=== PATIENT | female | born 1985 | race Caucasian/White ===

== ENCOUNTER 2016-10-30 16:51 | Emergency (ER) | payer OTHER ==
[2016-10-30 16:59] VITALS: BP 120/69; PULSE 102; TEMP 97.4; BMI 40.5
--- NOTE | 2016-10-30 18:40 | PDOC ---
History of Present Illness - General Chief Complaint: Cold Symptoms Stated Complaint: 24 wks preg HEADACHE,DIFF BREATHING Time Seen by Provider: 10/30/16 17:16 History Source: Patient Exam Limitations: No Limitations - History of Present Illness Initial Comments: 10/30/16 18:37 3 days of cough with fever; feeling lousy; 24 weeks Timing/Duration: reports: week Severity: reports: mild Possible Cause: No: illness exposure Associated Symptoms: reports: cough, fever/chills, nasal congestion, nasal drainage, sore throat Past History - Past Medical History Allergies/Adverse Reactions: Allergies Allergy/AdvReac Type Severity Reaction Status Date / Time sea food Allergy Uncoded 10/30/16 16:55 Home Medications: Ambulatory Orders Albuterol Sulfate Inhaler - [Ventolin HFA Inhaler -] 2 inh IH Q4H #0 inh Loratadine [Claritin] 10 mg PO DAILY #14 tab.rapdis 12/22/11 Docusate Sodium [Colace] 100 mg PO TID #90 capsule 04/19/14 Magnesium Citrate [Citrate of Magnesia] 300 ml PO ONCE #1 bottle 04/19/14 Polyethylene Glycol 3350 [Miralax 255 gm Btl] 17 gm PO DAILY PRN #1 bottle 04/19 Other medical history: none - Psycho/Social/Smoking Cessation Hx Anxiety: No Suicidal Ideation: No Smoking Status: No Smoking History: Never smoked Have you smoked in the past 12 months: No Number of Cigarettes Smoked Daily: 0 Cigars Per Day: 0 Information on smoking cessation initiated: No Hx Alcohol Use: No Drug/Substance Use Hx: No Substance Use Type: None Review of Systems - Review of Systems Constitutional: Yes: Fever, Malaise HEENTM: Yes: Nose Pain, Nose Congestion, Throat Pain Respiratory: Yes: Cough. No: Symptoms reported, Shortness of Breath, SOB with Exertion, Wheezing Cardiac (ROS): No: Symptoms Reported, Chest Pain ABD/GI: No: Symptoms Reported, Diarrhea, Nausea, Vomiting : No: Burning, Dysuria, Frequency, Hematuria, Urgency *Physical Exam - Vital Signs Last Vital Signs Temp Pulse Resp BP Pulse Ox 97.4 F L 102 H 18 120/69 100 10/30/16 16:56 10/30/16 16:56 10/30/16 16:56 10/30/16 16:56 10/30/16 16:56 - Physical Exam General Appearance: Yes: Appropriately Dressed HEENT: positive: TMs Normal, Pharyngeal Erythema, Tonsillar Exudate, Tonsillar Erythema, Nasal Congestion, Rhinorrhea. negative: Pharynx Normal, TM Bulging, TM Dull, TM Erythema Neck: positive: Supple, Lymphadenopathy (R), Lymphadenopathy (L). negative: Tender, Rigid Respiratory/Chest: positive: Lungs Clear Cardiovascular: positive: Regular Rhythm, Regular Rate. negative: Murmur Integumentary: negative: Erythema, Petechiae, Other Neurologic: positive: lining vamper II-XII NML intact, Fully Oriented, Alert Medical Decision Making - Medical Decision Making 10/30/16 19:08 negative flu and rapid strep today; feeling better post tylenol for headache *DC/Admit/Observation/Transfer Diagnosis at time of Disposition: Viral upper respiratory tract infection - Discharge Dispostion Disposition: HOME Condition at time of disposition: Stable Admit: No - Patient Instructions Additional Instructions: lots of fluids; rest; return for increased symptoms - Post Discharge Activity Work/School Note: Back to Work
[2016-10-30] MEDS ORDERED: ACETAMINOPHEN 325 MG TABLET (FP) PO ONE (18:46)
[2016-10-30] MEDS ORDERED: ACETAMINOPHEN 325 MG TABLET (FP) ONE (18:49)
== END 2016-10-30 19:16 | disposition home or self-care (01) ==
LOC: JERFT 16:51
DX: J06.9 Acute upper respiratory infection, unspecified (principal); B97.89 Other viral agents as the cause of diseases classified elsewhere
CPT/HCPCS: 87070; 87077; 87430; 87804; 99281-25

== ENCOUNTER 2017-01-28 09:16 | Emergency (ER) | payer OTHER ==
[2017-01-28 09:31] VITALS: TEMP 97.9; BMI 44.9
--- NOTE | 2017-01-28 09:42 | PDOC ---
History of Present Illness - General History Source: Patient, Parent(s) (Mother ), Old Records Exam Limitations: No Limitations - History of Present Illness Initial Comments: 01/28/17 10:08 The patient is a 32 year old female (; currently approximately 37 weeks ), with a significant past medical history of asthma (as a child) and acid reflux, who presents to the emergency department with shortness of breath on exertion since earlier this morning. The patient reports that she was walking up the stairs earlier this morning and felt winded so she decided to visit the ED for evaluation. The patient additionally reports that certain foods trigger her acid reflux. The patient reports that she ate ketchup yesterday and shortly after, she began experiencing a mild productive cough, which she reports always occurs after she consumes foods which trigger her acid reflux. The patient reports that she took Mylanta last night, with minimal relief. The patient presents to the ED today primarily to ensure that her baby is okay given her shortness of breath earlier this morning. Currently in the ED , the patient denies any symptoms. The patient denies any abdominal cramping or vaginal bleeding. The patients mother is at the bedside. The patients primary language is Tunisian. Allergies: Shellfish derived. Past Surgical History: None reported. Social History: Non smoker. Denies alcohol or drug use. AIRPORT CONTROL OPERATOR: ROMINA Rubi <Emily Mark - Last Filed: 01/28/17 10:14> <Jaki Gee - Last Filed: 01/29/17 10:43> - General Chief Complaint: Shortness of Breath Stated Complaint: CHEST PAIN, 37 WKS Time Seen by Provider: 01/28/17 09:39 Past History <Emily Mark - Last Filed: 01/28/17 10:14> - Past Medical History Other medical history: DENIES. - Psycho/Social/Smoking Cessation Hx Anxiety: No Suicidal Ideation: No Smoking Status: No Smoking History: Never smoked Have you smoked in the past 12 months: No Number of Cigarettes Smoked Daily: 0 Cigars Per Day: 0 Hx Alcohol Use: No Drug/Substance Use Hx: No Substance Use Type: None <Jaki Gee - Last Filed: 01/29/17 10:43> - Past Medical History Allergies/Adverse Reactions: Allergies Allergy/AdvReac Type Severity Reaction Status Date / Time shellfish derived Allergy Verified 01/28/17 10:12 sea food Allergy Uncoded 01/28/17 10:11 Home Medications: Ambulatory Orders Magnesium Citrate [Citrate of Magnesia] 300 ml PO ONCE #1 bottle 04/19/14 Vits #93/Iron Fum/FA [ Formula Tablet] 1 each PO DAILY Review of Systems - Review of Systems Able to Perform ROS?: Yes Comments:: 01/28/17 10:05 GENERAL/CONSTITUTIONAL: No fever or chills. No weakness. HEAD, EYES, EARS, NOSE AND THROAT: No change in vision. No ear pain or discharge. No sore throat. CARDIOVASCULAR: +Dyspnea on exertion. No chest pain. RESPIRATORY: +Cough. No wheezing or hemoptysis. GASTROINTESTINAL: No nausea, vomiting, diarrhea or constipation. GENITOURINARY: No dysuria, frequency, or change in urination. MUSCULOSKELETAL: No joint or muscle swelling or pain. No neck or back pain. SKIN: No rash. NEUROLOGIC: No headache, vertigo, loss of consciousness, or change in strength/ sensation. ENDOCRINE: No increased thirst. No abnormal weight change. HEMATOLOGIC/LYMPHATIC: No anemia, easy bleeding, or history of blood clots. ALLERGIC/IMMUNOLOGIC: No hives or skin allergy. <Emily Mark - Last Filed: 01/28/17 10:14> *Physical Exam - Vital Signs Last Vital Signs Temp Pulse Resp BP Pulse Ox 97.9 F 92 H 19 133/79 99 01/28/17 09:26 01/28/17 09:26 01/28/17 09:26 01/28/17 09:26 01/28/17 09:26 - Physical Exam Comments: 01/28/17 10:02 GENERAL: Awake, alert, and fully oriented, in no acute distress. HEAD: No signs of trauma. EYES: PERRLA, EOMI, sclera anicteric, conjunctiva clear. ENT: Auricles normal inspection, hearing grossly normal, nares patent, oropharynx clear without exudates. Moist mucosa. NECK: Normal ROM, supple, no lymphadenopathy, JVD, or masses. LUNGS: Breath sounds equal, clear to auscultation bilaterally. No wheezes, and no crackles. HEART: Regular rate and rhythm, normal S1 and S2, no murmurs, rubs or gallops. ABDOMEN: Gravid uterus. Soft, nontender, normoactive bowel sounds. No guarding, no rebound. No masses. EXTREMITIES: Normal range of motion, no edema. No clubbing or cyanosis. No cords , erythema, or tenderness. NEUROLOGICAL: Cranial nerves II through XII intact. Normal speech, normal gait. SKIN: Warm, dry, normal turgor, no rashes or lesions noted. <Emily Mark - Last Filed: 01/28/17 10:14> - Vital Signs Last Vital Signs Temp Pulse Resp BP Pulse Ox 97.9 F 92 H 19 133/79 99 01/28/17 09:26 01/28/17 09:26 01/28/17 09:26 01/28/17 09:26 01/28/17 09:26 <Jaki Gee - Last Filed: 01/29/17 10:43> Medical Decision Making - Medical Decision Making No signs of PE, and clinical presentation makes it unlikely- more like discomforts of late combined with reflux and dietary choices. She is asymptomatic in ED. Will give H2 vidya and send to L&D for assessment. <Jaki Gee - Last Filed: 01/29/17 10:43> *DC/Admit/Observation/Transfer - Attestations Scribe Attestion: 01/28/17 09:44 Documentation prepared by Emily Mark, acting as medical transport specialist for Jaki Gee MD. <Emily Mark - Last Filed: 01/28/17 10:14> - Discharge Dispostion Admit: No <Jaki Gee - Last Filed: 01/29/17 10:43> Diagnosis at time of Disposition: Shortness of breath Acid reflux Qualifiers: Esophagitis presence: esophagitis presence not specified Qualified Code(s): K21.9 - Gastro-esophageal reflux disease without esophagitis - Discharge Dispostion Disposition: HOME Condition at time of disposition: Stable - Referrals Referrals: [facility] ([facility]) [Outside] Maile De Dios [Primary Care Provider] - - Patient Instructions Printed Discharge Instructions: DI for -- Discomforts and Remedies
[2017-01-28] MEDS ORDERED: RANITIDINE HCL 150 MG TABLET (FP) PO ONE (09:56)
--- NOTE | 2017-01-28 10:13 | EKG ---
Test Reason : Blood Pressure : / mmHG Vent. Rate : 096 BPM Atrial Rate : 096 BPM P-R Int : 120 ms QRS Dur : 084 ms QT Int : 332 ms P-R-T Axes : 051 009 028 degrees QTc Int : 419 ms NORMAL SINUS RHYTHM WITH SINUS ARRHYTHMIA MODERATE VOLTAGE CRITERIA FOR LVH, MAY BE NORMAL VARIANT BORDERLINE ECG NO PREVIOUS ECGS AVAILABLE Confirmed by GARRETT MARSHALL MD ([id number]) on 01/28/2017 10:12:44 AM Referred By: Confirmed By:GARRETT MARSAHLL MD
[2017-01-28 11:11] VITALS: BP 131/64; PULSE 88
== END 2017-01-28 11:15 | disposition home or self-care (01) ==
LOC: JER 09:16
DX: O26.893 Other specified pregnancy related conditions, third trimester (principal); R06.02 Shortness of breath; K21.9 Gastro-esophageal reflux disease without esophagitis; Z3A.37 37 weeks gestation of pregnancy
CPT/HCPCS: 93005; 93010; 99282-25

== ENCOUNTER 2017-02-06 21:40 | Inpatient (IN) | payer OTHER ==
[2017-02-06] MEDS: DEXTROSE 5%-LACTATED RINGERS 1,000 ML IV SCH (22:20)
[2017-02-06] MEDS ORDERED: BUTORPHANOL TARTRATE 1 MG/ML VIAL IVPB ONE (22:29)
[2017-02-06] MEDS ORDERED: PROMETHAZINE HCL 25 MG/1 ML VIAL IVPUSH ONE (22:29)
[2017-02-06] MEDS ORDERED: DINOPROSTONE 10 MG VAGINAL SUPPOSITORY VG ONE (22:29)
--- NOTE | 2017-02-06 22:29 | HP ---
Admitting History and Physical - Admission Chief Complaint: srom History of Present Illness: 32 y/o at 39 weeks comes with SROM this evening. gbs neg, hiv neg, rubella immune History Source: Patient - Past Medical History STYLE ADVISOR: No: Alzheimer's, CVA, Dementia, Migraine, Multiple Sclerosis, Peripheral Neuropathy, Parkinson's, Seizure, Syncope, TIA, Vertigo, Other Cardiovascular: No: AFIB, Aneurysm, Aortic Insufficiency, Aortic Stenosis, CAD, CHF, Deep Vein Thrombosis, HTN, Hyperlipdemia, FL, Mitral Insufficiency, Mitral Stenosis, Murmur, Pulmonary Hypertension, Other Pulmonary: No: Asthma, Bronchitis, Cancer, COPD, O2 Dependent, Pneumonia, Previously Intubated, Pulmonary Embolus, Pulmonary Fibrosis, Sleep Apnea, Other Gastrointestinal: No: Ascites, Cancer, Constipation, Crohn's Disease, Diverticulitis, Diverticulosis, Esophageal Varices, Gastritis, GERD, GI Bleed, Hemorrhoids, Hiatal Hernia, Inflamatory Bowel Disease, Irritable Bowel Disease, Pancreatitis, Peptic Ulcer Disease, Ulcerative Colitis, Other Hepatobiliary: No: Cirrhosis, Cholelithiasis, Cholecystitis, Choledocholithiasis , Hepatitis A, Hepatitis B, Hepatitis C, Other Renal/: No: Renal Failure, Renal Inusuff, BPH, Cancer, Hematuria, Hemodialysis , Neurogenic Bladder, Renal Calculi, UTI, Other Reproductive: No: Ectopic , Endometriosis, Fibroids, PID, Polycystic Ovary Syndrome, Postmenopausal, Other Heme/Onc: No: Anemia, B12 Deficiency, Bleeding Disorder, Cancer, Current Chemotherapy, Current Radiation Therapy, Hemochromatosis, Hypercoaguable State, Myeloproliferative Synd, Sickle Cell Disease, Sickle Cell Trait, Thrombocytopenia, Other Infectious Disease: No: AIDS, C-Diff, Herpes Zoster, HIV, MRSA, STD's, Tuberculosis, VREF, Other Psych: No: Addictions, Anxiety, Bipolar, Depression, Panic, Psychosis, Schizophrenia, Other Musculoskeletal: No: Bursitis, Chronic low back pain, Hemiparesis, Hemiplegia, Osteoarthritis, Paraplegia, Other Rheumatology: No: Fibromyalgia, Gout, Lupus, Rheumatoid Arthritis, Sarcoidosis, Vasculitis, Other ENT: No: Allergic Rhinitis, Sinusitis, Other Endocrine: No: Acme's Disease, [place]'s Disease, Diabetes Insipidus, Diabetes Mellitus, Hyperparathyroidism, Hyperthyroidism, Hypothyroidism, Osteopenia, SIADH, Other Dermatology: No: Basal Cell, Cellulitis, Eczema, Melanoma, Psoriasis, Squamous Cell, Other - Past Surgical History Past Surgical History: No: None, AAA Repair, AICD, Amputation, Appendectomy, Arthrosocopy, AV Fistula/Graft, Bariatric Surgery, Breast Biopsy, Bypass, CABG, Carotid Endarterectomy, Cataract Removal, Cholecystectomy, Colectomy, Colonoscopy, Colostomy, Craniotomy, , Cystectomy, Hernia Repair, Hysterectomy, Ileal Conduit, Ileosotomy, Joint Replacement, Kidney Transplant, Laminectomy, Liver Transplant, Mastectomy, Nephrectomy, Oopherectomy, Orchiectomy, Permanent Pacemaker, Prostatectomy, Splenectomy, Stent, Thoracotomy , TURP, Tonsillectomy, Tubal Ligation, Upper Endoscopy, Valve Replacement, Vasectomy, Vein Stripping/Ligation - Advance Directives Advance Directives: No: Living Will, Health Care Proxy, DNR, Organ Donor, Tissue Donor, MOLST - Smoking History Smoking history: Never smoked Have you smoked in the past 12 months: No Aproximately how many cigarettes per day: 0 - Alcohol/Substance Use Hx Alcohol Use: No Home Medications - Allergies Allergies/Adverse Reactions: Allergies Allergy/AdvReac Type Severity Reaction Status Date / Time shellfish derived Allergy Verified 01/28/17 10:12 sea food Allergy Uncoded 01/28/17 10:11 - Home Medications Home Medications: Ambulatory Orders Magnesium Citrate [Citrate of Magnesia] 300 ml PO ONCE #1 bottle 04/19/14 Vits #93/Iron Fum/FA [ Formula Tablet] 1 each PO DAILY Review of Systems - Review of Systems Constitutional: reports: No Symptoms Eyes: reports: No Symptoms HENT: reports: No Symptoms Neck: reports: No Symptoms Cardiovascular: reports: No Symptoms Respiratory: reports: No Symptoms Gastrointestinal: reports: No Symptoms Genitourinary: reports: No Symptoms Breasts: reports: No Symptoms Reported Musculoskeletal: reports: No Symptoms Integumentary: reports: No Symptoms Endocrine: reports: No Symptoms Hematology/Lymphatic: reports: No Symptoms Psychiatric: reports: No Symptoms Physical Examination Constitutional: Yes: Well Nourished Eyes: Yes: WNL HENT: Yes: WNL Neck: Yes: WNL Cardiovascular: Yes: WNL Respiratory: Yes: WNL Gastrointestinal: Yes: WNL ...Rectal Exam: Yes: WNL Renal/: Yes: WNL (ve--3, closed) Breast(s): Yes: WNL Musculoskeletal: Yes: WNL Assessment/Plan as above cervidil labs pain meds prn
[2017-02-06 22:48] LABS: BASOPHIL 0.6 % (0-2.0); EOSINOPHIL 2.3 % (0-4.5); MCH 24.5 pg (25.7-33.7); MCHC 32.2 g/dl (32.0-36.0); MEAN CELL VOLUME 76.1 fl (80-96); MEAN PLT VOLUME 8.9 fl (7.5-11.1); NEUTROPHILS 62.9 % (42.8-82.8); PLATELET COUNT 210 K/MM3 (134-434); RDW 16.2 % (11.6-15.6); WHITE BLOOD COUNT 7.9 K/mm3 (4.0-10.0)
--- NOTE | 2017-02-06 22:49 | PN ---
Progress Note (short form) - Note Progress Note: cervidil placed in post fornix, exam closed-3
[2017-02-06 23:05] LABS: INR 0.98 (0.82-1.09); PROTHROMBIN TIME (PATIENT) 10.8 SEC (9.98-11.88)
[2017-02-06 23:07] LABS: ACTIVATED PTT 28.2 SECONDS (26.9-34.4)
[2017-02-06 23:22] LABS: CREATININE 0.5 mg/dL (0.55-1.02)
[2017-02-06 23:41] VITALS: BMI 45.8
[2017-02-07] MEDS: DEXTROSE 5%-LACTATED RINGERS 1,000 ML IV SCH ×2 (01:15→22:30)
--- NOTE | 2017-02-07 06:43 | PN ---
Progress Note (short form) - Note Progress Note: still with cervidil, no complaints
[2017-02-07] MEDS ORDERED: OXYTOCIN 15 UNITS/ LR 250 ML 250 ML IVPB SCH (11:00)
--- NOTE | 2017-02-07 11:11 | PN ---
Progress Note (short form) - Note Progress Note: 32 yrs , EDC 02/13/17 39.[address] Cloud due to SROM since 8.00pm on 02/06/17 ... GBS neg. . Cevidil was inserted at 10.50 pm 02/06/17 o/e pt morbidly obese . Term IuP , cephalic . 10.30 AM pelvic ex: no cervidil was noted in vagina. Pt does not recall when cervidil fell off . cx post, FT, uneffaced .,Vx -3/-4 . monitor strip : UC infrequent, Mild .. FHR 140, cat -1 Plan Fleets Enema, shower Pitocin Induction .. Trial of vaginal delivery Selected Entries 02/07/17 10:00 Temperature 97.5 F L Pulse Rate 68 Blood Pressure 105/54 Laboratory Tests 02/06/17 02/06/17 02/06/17 19:00 19:00 19:00 WBC 7.9 Hgb 10.1 L Hct 31.5 L MCV 76.1 L Plt Count 210 Neutrophils % 62.9 Lymphocytes % 22.7 Monocytes % 11.5 H INR 0.98 PTT (Actin FS) 28.2 Sodium 141 Potassium 3.9 Chloride 107 Carbon Dioxide 20 L BUN 7 Creatinine 0.5 L Random Glucose 116 H Calcium 9.0 RPR Titer 02/06/17 19:00 WBC Hgb Hct MCV Plt Count Neutrophils % Lymphocytes % Monocytes % INR PTT (Actin FS) Sodium Potassium Chloride Carbon Dioxide BUN Creatinine Random Glucose Calcium RPR Titer Nonreactive
[2017-02-07] MEDS ORDERED: SODIUM PHOSPHATE/NA BIPHOS 133 ML ENEMA PR ONE (11:15)
[2017-02-07] MEDS ORDERED: AMPICILLIN - 2G/100 ML IVPB ONE (14:00)
[2017-02-07] MEDS: AMPICILLIN - 1G/100 ML IVPB SCH ×2 (17:45→22:19)
--- NOTE | 2017-02-07 18:37 | PN ---
Progress Note (short form) - Note Progress Note: 6.30 pm 1-2 cm/60%/ID /Vx-3/fore water felt intact Uc 2-4 min irregular FHR 130-140 , cat-1 Pitocin Induction started at 11.40 am Stadol 2mg iv was given at 5.40 am . Bed side Sono was done for fluid vol, oligohydramnios was confirmed, largest pocket 3.cm .Only 2 pockets were noted . Imp : Latent Labor Selected Entries 02/07/17 17:00 Pulse Rate 83 Blood Pressure 132/65
[2017-02-07] MEDS ORDERED: ELECTROLYTE-148 SOLN 1,000 ML IV SCH (21:00)
[2017-02-07] MEDS ORDERED: CITRIC ACID/SODIUM CITRATE 30 ML UNIT-DOSE CUP PO ONE (22:07)
--- NOTE | 2017-02-07 22:13 | PN ---
Progress Note (short form) - Note Progress Note: 8.40 pm vaginal exam 1-2 cm 60 5 effaced, vx -3 FHR cat-1 140 UC q1-3 min pt c/o pain, does not want to take stadol again or refuses to ambulate she refuses to continue induction of labor she requests for primary c/section Plan stop pitocin await for OR availablity preop for c/section consent
[2017-02-07] MEDS ORDERED: ceFAZolin 2 GRAM PREMIX BAG IVPB ONE (22:15)
[2017-02-08] MEDS ORDERED: IBUPROFEN 800 MG/8 ML IJ IVPB PRN (00:18)
[2017-02-08] MEDS ORDERED: ONDANSETRON 4 MG/2 ML VIAL IVPUSH PRN (00:19)
[2017-02-08] MEDS ORDERED: METHYLERGONOVINE MALEATE 0.2 MG/1 ML AMP IM PRN (00:25)
[2017-02-08] MEDS ORDERED: D5W-LR W/ 20 UNITS OXYTOCIN 1,000 ML IV SCH (00:30)
--- NOTE | 2017-02-08 00:40 | PN ---
Delivery - Delivery Section: Primary, Low Flap Transverse (Indication : 39.2 weeks, prolonged pROM, Failed Induction of labor, requests c/section..morbid obesity) Type of Anesthesia: Spinal EBL (cc): 800 (200 ml paige output, krystal color) Delivery, Single - Stages of Labor Date 1st Stage Initiatied: 02/07/17 Time 1st Stage Initiated: 15:00 Date of Delivery: 02/07/17 Time of Delivery: 23:35 Date Placenta Delivered: 02/07/17 Time Placenta Delivered: 23:37 Placenta: Yes: Manual Removal, Uterine Exploration - Condition of Office Associate/Residential Monitor Present: Yes Name: Dmitriy Tolentino Infant Gender: Female Weight: 6 lb 11 oz Position: Right, OP (cord around neckx3) Total Hours ROM (Hrs/Mins): 27hrs,37 min - 1 Minute Total Score: 9 5 Minutes Total Score: 9 - [place] Feeding Plan Initial Plan: Elected not to breastfeed exclusively throughout hospitalization Remarks - Remarks Remarks: 32 yrs , 39.2 weeks, admitted due to srom since 8.00pm on 02/06/[address] Cloud. Morbidly obese, wt 267 lbs , BMI 45.8 cervidil induction was begun on 02/06/17 02/07/17 Pitocin Induction was begun gbs neg. Due to Prolonged ROM, IV Ampicillin x2 doses followed by 2 gm IV ancef preop was given. failure of dilatation & descent, failed induction of labor,, pt requests for c/ section . Intra aop course uneventful
--- NOTE | 2017-02-08 00:55 | OP ---
Operative Note - Note: Operative Date: 02/07/17 Pre-Operative Diagnosis: 39.2 weeks, prolonged ROM, failed induction, requests c /section, morbid Obesity Operation: Primary LFTC/Section Findings: 02/07/17, 11.35 pm , baby Girl, 9/9. ROP , Cord around neckx3 , wt 6'11" Ht 18.5" Both Tubes & ovaries normal . DR Tolentino present in the room Surgeon: Laura Fragoso Drain Tile Press Operator: Jovan Jeff Anesthesiologist/HYDRO SPRAYER OPERATOR: Morgan Jaramillo Anesthesia: Spinal Specimens Removed: placenta. cord blood Estimated Blood Loss (mls): 800 Drains, Volume Out (mls): 200 (paige output , krystal color ) Blood Volume Replaced (mls): 1,700 Operative Report Dictated: Yes
[2017-02-08] MEDS ORDERED: CEFAZOLIN 1 GM/D5W 50 ML IVPB SCH (02:00)
--- NOTE | 2017-02-08 02:41 | OP ---
DATE OF OPERATION: 02/07/2017 PREOPERATIVE DIAGNOSIS: 39.2 weeks, prolonged rupture of membranes, failed induction of labor, requesting section. POSTOPERATIVE DIAGNOSIS: PROCEDURE: Primary low flap transverse section. SURGEON: Laura Fragoso MD RN SOCIAL SERVICES: Jovan Jeff MD ANESTHESIOLOGIST: Morgan Jaramillo MD ANESTHESIA: Spinal. FINDINGS: This is a 32-year-old 3, para 0-0-2-0 at 39.2 weeks who presented with rupture of membranes on February 06, 2017, since 8 p.m. Cervidil induction was started on February 06. After 12 hours, Pitocin induction was begun. Patient dilated from 1 cm to 2 cm and refused to continue induction of labor and requested section. Incidentally, the patient is morbidly obese. Her weight is 267 pounds, BMI is 45.8. Her GBS was negative because of the prolonged rupture of membranes. She received 2 doses of IV ampicillin and 1 dose of 2 g of IV Ancef preoperatively. Magazine Designer was Dr. Tolentino, who was present in the room. PROCEDURE: Abdomen was shaved and prepped. Linn catheter was placed. She was taken to the operating room table and spinal anesthesia was given. Patient was placed in the supine position and the panniculus of the abdomen was pulled up with tape and the abdomen was painted with DuraPrep and draped in the usual manner. Pfannenstiel incision was made. The skin and subcutaneous tissues were entered and the anterior rectus sheath was incised transversely. Bleeding points were clamped and cauterized. Rectus muscles were from the rectus sheath. Parietal peritoneum was opened vertically. The lower part of the peritoneum was incised transversely and the lower uterine segment was incised transversely. Amniotic fluid was clear. The baby was delivered at 11:35 p.m. from the ROP position. Cord around the neck x3 was noted. The cord was untangled before the delivery of the shoulders. The cord was clamped and cut. Cord blood was collected. The baby's 's were 9 and 9 and the weight was 6 pounds 11 ounces. Placenta was removed completely with membranes. Uterine cavity was cleaned. Closure of the uterine incision was done in 2 layers, 1st layer was closed with Biosyn 0 suture, continuous sutures were taken, and the 2nd layer was with Biosyn 0 mattress continuous sutures were taken. Hemostasis was checked. The parietal peritoneum was also closed with Biosyn 0 suture. Both tubes and ovaries were inspected. They were normal. Irrigation was done. Then, sponge, instrument, and needle counts were correct. The closure of the abdomen was done. The peritoneum was closed with 0 Vicryl suture. Muscles were approximated together with 0 Vicryl interrupted sutures. Hemostasis was checked and the rectus sheath was closed with 0 Vicryl continuous suture. Hemostasis was checked in the subcutaneous tissues. Interrupted sutures were taken with Biosyn 0 suture in the subcutaneous tissues. The skin was approximated with jacob. Pressure dressing was given. Blood clots were removed from the vagina. Estimated blood loss was 800 mL. Urine output intraoperatively was 200 mL. She was transferred to the recovery room in stable condition. Jaya [id number]
[2017-02-08] MEDS ORDERED: CEFAZOLIN (PRE-DOCKED) 50 ML IVPB ONE ×2 (05:56→21:12)
[2017-02-08] MEDS: CEFAZOLIN 1 GM/D5W 50 ML IVPB SCH ×3 (06:00→21:21)
--- NOTE | 2017-02-08 08:19 | PN ---
Progress Note (short form) - Note Progress Note: pod 1 has mild low abdominal cramps CBC, BMP 02/06/17 19:00 02/06/17 19:00 Last Vital Signs Temp Pulse Resp BP Pulse Ox 98.7 F 85 18 107/56 100 02/08/17 06:00 02/08/17 06:00 02/08/17 06:00 02/08/17 06:00 02/08/17 01:15 abdomen soft , no distension , no cva incision dry, clean lochia mild paige clear urine plan ambulate, cbc, advance diet pain management
[2017-02-08 08:42] LABS: BASOPHIL 0.6 % (0-2.0); EOSINOPHIL 0.8 % (0-4.5); MCH 25.1 pg (25.7-33.7); MCHC 32.7 g/dl (32.0-36.0); MEAN CELL VOLUME 76.6 fl (80-96); MEAN PLT VOLUME 8.6 fl (7.5-11.1); NEUTROPHILS 69.3 % (42.8-82.8); PLATELET COUNT 169 K/MM3 (134-434); RDW 16.2 % (11.6-15.6)
--- NOTE | 2017-02-08 10:42 | PN ---
Progress Note (short form) - Note Progress Note: ANESTHESIOLOGY POST-OP CHECK 32F s/p under spinal anesthesia, POD #1. No acute complaints, pain 6 /10 - tolerable. Denies N/V, backache, headache, numbness, weakness. Had headache 3/10 severity but currently resolved. Not yet OOB, paige in place. Vital Signs Temperature 97.7 F 02/08/17 10:00 Pulse Rate 86 02/08/17 10:00 Respiratory Rate 20 02/08/17 10:00 Blood Pressure 101/61 02/08/17 10:00 O2 Sat by Pulse Oximetry (%) 100 02/08/17 09:00 Active Medications Acetaminophen (Tylenol -) 650 mg PO Q4H PRN PRN Reason: FEVER OR PAIN Bisacodyl (Dulcolax Suppository -) 10 mg RC PRN PRN PRN Reason: CONSTIPATION Diphenhydramine HCl (Benadryl Injection -) 25 mg IVPUSH Q4H PRN PRN Reason: itching Last Admin: 02/08/17 01:32 Dose: 25 mg Enoxaparin Sodium (Lovenox -) 40 mg SQ DAILY [facility] Ferrous Sulfate (Feosol -) 325 mg PO BID [facility] Dextrose/Lactated Ringer's (Pitocin 20 Units In D5-Lr -) 1,000 mls @ 125 mls/ hr IV ASDIR [facility] Last Admin: 02/08/17 03:45 Dose: 125 mls/hr Cefazolin Sodium (Ancef 1 Gm Premixed Ivpb -) 50 mls @ 100 mls/hr IVPB Q8H MICKEY Stop: 02/09/17 05:59 Last Admin: 02/08/17 06:00 Dose: 100 mls/hr Ibuprofen (Caldolor Injection -) 800 mg IVPB Q6H PRN PRN Reason: PAIN Stop: 02/08/17 23:15 Last Admin: 02/08/17 01:30 Dose: 800 mg Ibuprofen (Motrin -) 600 mg PO Q4H PRN PRN Reason: PAIN Methylergonovine Maleate (Methergine Injection -) 0.2 mg IM Q4H PRN PRN Reason: Excessive Bleeding (L&D) Oxycodone HCl (Roxicodone -) 5 mg PO Q4H PRN PRN Reason: PAIN LEVEL 1-5 Oxycodone HCl (Roxicodone -) 10 mg PO Q4H PRN PRN Reason: PAIN LEVEL 6-10 Multivit/Folic Acid/Iron ( Vitamins (Sjr) -) 1 tab PO DAILY MICKEY Senna/Docusate Sodium (Pericolace -) 2 tablet PO HS PRN PRN Reason: CONSTIPATION Simethicone (Mylicon -) 80 mg PO Q4H PRN PRN Reason: GAS Gen : awake, alert Ext: No apparent motor or sensory deficits of B/L lower extremities No apparent anesthesia complications. Pain well controlled. Continue management as per primary team.
[2017-02-08] MEDS: ENOXAPARIN NA (PORCINE) 40 MG/0.4 ML DISP.SYRIN SQ SCH (12:52)
[2017-02-08] MEDS: ACETAMINOPHEN 325 MG TABLET (FP) PO PRN (15:20)
[2017-02-08] MEDS: SIMETHICONE 80 MG TAB.CHEW (FP) PO PRN ×2 (15:21→22:06)
[2017-02-08] MEDS: IBUPROFEN 600 MG TABLET (FP) PO PRN ×2 (15:21→22:07)
[2017-02-08] MEDS ORDERED: oxyCODONE HCL 5 MG TABLET PO PRN (16:05)
[2017-02-08] MEDS: oxyCODONE HCL 5 MG TABLET PO PRN (22:06)
[2017-02-08] MEDS: SENNOSIDES/DOCUSATE COMBO (SENNA PLUS) TABLET (UD) PO PRN (22:11)
[2017-02-09] MEDS ORDERED: BISACODYL 10 MG SUPP.RECT RC PRN (00:25)
[2017-02-09] MEDS: SIMETHICONE 80 MG TAB.CHEW (FP) PO PRN ×2 (08:17→19:17)
[2017-02-09] MEDS: IBUPROFEN 600 MG TABLET (FP) PO PRN (08:17)
[2017-02-09] MEDS: ENOXAPARIN NA (PORCINE) 40 MG/0.4 ML DISP.SYRIN SQ SCH (09:44)
[2017-02-09] MEDS: PRENATAL VITAMINS W/ FOLIC ACID TABLET (FP) PO SCH (09:44)
--- NOTE | 2017-02-09 11:33 | PN ---
Post Progress Note - Subjective Subjective: no c/o pain , scale 4/10 voiding without difficulty Post Day: 2 Type of Delivery: Primary C/S Vital Signs: Vital Signs Temperature 98.4 F 02/09/17 09:07 Pulse Rate 102 H 02/09/17 09:07 Respiratory Rate 20 02/09/17 09:07 Blood Pressure 110/83 02/09/17 09:07 O2 Sat by Pulse Oximetry (%) 100 02/08/17 09:00 Breast Exam: Yes: Soft, Other (BF, Large breast). No: Engorged Uterus: Yes: Fundus Firm, Fundus below umbilicus, Non-tender Incision: Yes: Lionel intact. No: Redness, Oozing Abdomen/GI: Yes: Abdomen soft, Passing flatus (not done ), Tolerating PO (diet) . No: Abdominal Distention, Tender Lochia: Yes: Rubra Lochia, amount: Moderate Extremities: Yes: Calves non-tender Perineum: Yes: Intact Activity: Ambulating - Labs Labs: CBC WBC 9.0 K/mm3 (4.0-10.0) 02/08/17 08:00 RBC 3.82 M/mm3 (3.60-5.2) 02/08/17 08:00 Hgb 9.6 GM/dL (10.7-15.3) L 02/08/17 08:00 Hct 29.3 % (32.4-45.2) L 02/08/17 08:00 MCV 76.6 fl (80-96) L 02/08/17 08:00 MCHC 32.7 g/dl (32.0-36.0) 02/08/17 08:00 RDW 16.2 % (11.6-15.6) H 02/08/17 08:00 Plt Count 169 K/MM3 (134-434) 02/08/17 08:00 MPV 8.6 fl (7.5-11.1) 02/08/17 08:00 Neutrophils % 69.3 % (42.8-82.8) 02/08/17 08:00 Lymphocytes % 18.2 % (8-40) 02/08/17 08:00 Monocytes % 11.1 % (3.8-10.2) H 02/08/17 08:00 Eosinophils % 0.8 % (0-4.5) 02/08/17 08:00 Basophils % 0.6 % (0-2.0) 02/08/17 08:00 Other Findings, Remarks: obese Problem List - Problems (1) 39 weeks gestation of Code(s): Z3A.39 - 39 WEEKS GESTATION OF (2) Prolong rupt membran-deliv Code(s): BSM5322 - (3) Failed induction of labor Code(s): O61.9 - FAILED INDUCTION OF LABOR, UNSPECIFIED Qualifiers: Failed induction of labor type: medical Qualified Code(s): O61.0 - Failed medical induction of labor (4) Morbid obesity with BMI of 45.0-49.9, adult Code(s): E66.01 - MORBID (SEVERE) OBESITY DUE TO EXCESS CALORIES Z68.42 - BODY MASS INDEX (BMI) 45.0-49.9, ADULT (5) delivery due to maternal disorder, delivered, curr hospitaliz Code(s): O99.89 - OTH DISEASES AND CONDITIONS COMPL PREG/CHLDBRTH O82 - ENCOUNTER FOR DELIVERY WITHOUT INDICATION (6) Anemia Code(s): D64.9 - ANEMIA, UNSPECIFIED Qualifiers: Anemia type: iron deficiency Assessment/Plan stable anemia Plan ct po care encourage ambulation , po fluids, deep breathing
[2017-02-09] MEDS: oxyCODONE HCL 5 MG TABLET PO PRN (19:15)
[2017-02-09] MEDS: ACETAMINOPHEN 325 MG TABLET (FP) PO PRN (19:16)
[2017-02-09] MEDS: SENNOSIDES/DOCUSATE COMBO (SENNA PLUS) TABLET (UD) PO PRN (21:29)
--- NOTE | 2017-02-10 07:25 | PN ---
Post Progress Note - Subjective Subjective: no complains . Post Day: 3 Type of Delivery: Primary C/S Vital Signs: Vital Signs Temperature 97.9 F 02/09/17 22:00 Pulse Rate 106 H 02/09/17 22:00 Respiratory Rate 20 02/09/17 22:00 Blood Pressure 123/70 02/09/17 22:00 O2 Sat by Pulse Oximetry (%) 100 02/08/17 09:00 Breast Exam: Yes: Soft. No: Engorged Uterus: Yes: Fundus Firm, Fundus below umbilicus, Non-tender Incision: Yes: Lionel intact. No: Redness Abdomen/GI: Yes: Abdomen soft, Passing flatus, Tolerating PO (diet). No: Abdominal Distention (obese abdomen ) Lochia: Yes: Rubra Lochia, amount: Moderate Extremities: Yes: Calves non-tender Perineum: Yes: Intact Activity: Ambulating - Labs Labs: CBC WBC 9.0 K/mm3 (4.0-10.0) 02/08/17 08:00 RBC 3.82 M/mm3 (3.60-5.2) 02/08/17 08:00 Hgb 9.6 GM/dL (10.7-15.3) L 02/08/17 08:00 Hct 29.3 % (32.4-45.2) L 02/08/17 08:00 MCV 76.6 fl (80-96) L 02/08/17 08:00 MCHC 32.7 g/dl (32.0-36.0) 02/08/17 08:00 RDW 16.2 % (11.6-15.6) H 02/08/17 08:00 Plt Count 169 K/MM3 (134-434) 02/08/17 08:00 MPV 8.6 fl (7.5-11.1) 02/08/17 08:00 Neutrophils % 69.3 % (42.8-82.8) 02/08/17 08:00 Lymphocytes % 18.2 % (8-40) 02/08/17 08:00 Monocytes % 11.1 % (3.8-10.2) H 02/08/17 08:00 Eosinophils % 0.8 % (0-4.5) 02/08/17 08:00 Basophils % 0.6 % (0-2.0) 02/08/17 08:00 Problem List - Problems (1) 39 weeks gestation of Code(s): Z3A.39 - 39 WEEKS GESTATION OF (2) Prolong rupt membran-deliv Code(s): JJF6529 - (3) Failed induction of labor Code(s): O61.9 - FAILED INDUCTION OF LABOR, UNSPECIFIED Qualifiers: Failed induction of labor type: medical Qualified Code(s): O61.0 - Failed medical induction of labor (4) Morbid obesity with BMI of 45.0-49.9, adult Code(s): E66.01 - MORBID (SEVERE) OBESITY DUE TO EXCESS CALORIES Z68.42 - BODY MASS INDEX (BMI) 45.0-49.9, ADULT (5) delivery due to maternal disorder, delivered, curr hospitaliz Code(s): O99.89 - OTH DISEASES AND CONDITIONS COMPL PREG/CHLDBRTH O82 - ENCOUNTER FOR DELIVERY WITHOUT INDICATION (6) Anemia Code(s): D64.9 - ANEMIA, UNSPECIFIED Qualifiers: Anemia type: iron deficiency Assessment/Plan stable . Anemia plan dicharge tomorrow,
[2017-02-10 07:42] LABS: BASOPHIL 0.4 % (0-2.0); EOSINOPHIL 2.7 % (0-4.5); MCH 25.1 pg (25.7-33.7); MCHC 32.7 g/dl (32.0-36.0); MEAN CELL VOLUME 76.8 fl (80-96); MEAN PLT VOLUME 8.5 fl (7.5-11.1); PLATELET COUNT 194 K/MM3 (134-434); RDW 16.3 % (11.6-15.6); WHITE BLOOD COUNT 10.4 K/mm3 (4.0-10.0)
[2017-02-10] MEDS: SIMETHICONE 80 MG TAB.CHEW (FP) PO PRN ×2 (07:58→21:41)
[2017-02-10] MEDS: oxyCODONE HCL 5 MG TABLET PO PRN (07:59)
[2017-02-10] MEDS: IBUPROFEN 600 MG TABLET (FP) PO PRN ×2 (07:59→21:42)
[2017-02-10] MEDS: FERROUS SO4 325 MG TABLET (FP) PO SCH ×2 (09:13→21:42)
[2017-02-10] MEDS: PRENATAL VITAMINS W/ FOLIC ACID TABLET (FP) PO SCH (09:13)
[2017-02-10] MEDS: ENOXAPARIN NA (PORCINE) 40 MG/0.4 ML DISP.SYRIN SQ SCH (09:13)
[2017-02-10] MEDS: ACETAMINOPHEN 325 MG TABLET (FP) PO PRN (21:42)
[2017-02-10] MEDS: SENNOSIDES/DOCUSATE COMBO (SENNA PLUS) TABLET (UD) PO PRN (21:43)
[2017-02-11 07:31] LABS: BASOPHIL 0.7 % (0-2.0); EOSINOPHIL 4.5 % (0-4.5); MCH 24.8 pg (25.7-33.7); MCHC 32.1 g/dl (32.0-36.0); MEAN CELL VOLUME 77.2 fl (80-96); MEAN PLT VOLUME 8.4 fl (7.5-11.1); PLATELET COUNT 214 K/MM3 (134-434); RDW 16.6 % (11.6-15.6); WHITE BLOOD COUNT 8.7 K/mm3 (4.0-10.0)
--- NOTE | 2017-02-11 08:03 | DS ---
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 No: Distention ....Post : Yes: Uterus firm, Uterus non-tender, Moderate lochia rubra Breast(s): Yes: WNL (BF, large breast) Musculoskeletal: Yes: WNL Extremities: Yes: WNL. No: Calf Tenderness Edema: Yes Edema: LLE: 1+, RLE: 1+ Wound/Incision: Yes: Clean/Dry, Well Approximated, Steri Strips, Open to air, Lionel Removed. No: Draining, Reddened, Bleeding, Excoriated Neurological: Yes: WNL, Alert, Oriented ...Motor Strength: WNL Psychiatric: Yes: WNL, Alert, Oriented Labs: CBC, BMP 02/11/17 06:00 02/06/17 19:00 Delivery - Delivery Section: Primary, Low Flap Transverse (Indication : 39.2 weeks, prolonged pROM, Failed Induction of labor, requests c/section..morbid obesity) Type of Anesthesia: Spinal Episiotomy/Laceration: None EBL (cc): 800 (200 ml paige output, krystal color) Delivery, Single - Stages of Labor Date 1st Stage Initiatied: 02/07/17 Time 1st Stage Initiated: 15:00 Date of Delivery: 02/07/17 Time of Delivery: 23:35 Time Placenta Delivered: 23:37 Placenta: Yes: Manual Removal, Uterine Exploration - Condition of Extruder Operator/Suit Attendant Present: Yes Name: Dmitriy Tolentino Gender: Female Weight: 6 lb 11 oz Position: Right, OP (cord around neckx3) Total Hours ROM (Hrs/Mins): 27hrs,37 min - 1 Minute Total Score: 9 5 Minutes Total Score: 9 - Feeding Plan Initial Plan: Elected not to breastfeed exclusively throughout hospitalization Remarks - Remarks Remarks: 32 yrs , 39.2 weeks, admitted due to srom since 8.00pm on 02/06/[address] Cloud. Morbidly obese, wt 267 lbs , BMI 45.8 cervidil induction was begun on 02/06/17 02/07/17 Pitocin Induction was begun gbs neg. Due to Prolonged ROM, IV Ampicillin x2 doses followed by 2 gm IV ancef preop was given. failure of dilatation & descent, failed induction of labor,, pt requests for c/ section . Intra aop course uneventful . post op course uneventful anemia counselled discharge today. Discharge Summary Reason For Visit: ADMIT-LABOR Current Active Problems 39 weeks gestation of (Acute) Anemia (Acute) delivery due to maternal disorder, delivered, curr hospitaliz (Acute) Failed induction of labor (Acute) Morbid obesity with BMI of 45.0-49.9, adult (Acute) Prolong rupt membran-deliv (Acute) Condition: Stable - Instructions Diet, Activity, Other Instructions: Post Instructions DIET: Continue good diet high in protein, calcium, and iron rich foods. Drink at least eight (8) glasses of water daily in addition to other fluids. ___ Regular diet MEDICATIONS: Continue vitamins and iron as previously directed. Motrin and Tylenol may be taken for minor discomfort. ACTIVITY: Mild to moderate exercise may be started in two (2) weeks. Take frequent rest periods. Resume normal activity after six (6) week check up. WOUND CARE OF OPERATIVE SITE: Continue use of perineal bottle until vaginal discharge stops. Keep area clean. Shower daily. Keep abdominal wound dry. Report any drainage or redness to physician. Tub baths, tampons and douches are not permitted for [address] Breast feeding & or Bottle feeding BREAST CARE: (For those that are not breast feeding): If engorgement occurs: Wear tight fitting bra. Take Tylenol or Motrin for pain. Apply cold packs (ice in bags to each breast ) FAMILY PLANNING: There are many control alternatives to pursue and they should be discussed at your first office visit. You may resume sexual activity after your six (6) week check up. (Remember, breast feeding is not a contraceptive) NEXT PHYSICIAN APPOINTMENT: Be certain to call for a one (1) week appointment, unless otherwise directed. rtc for wound check Call Clinic or got to Emergency Dept if you have any of the following: Heavy vaginal bleeding Painful urination Leg pain Unusual odor noted to vaginal bleeding High fever Red streaking noted on breast Referrals: Laura Fragoso MD [Staff Physician] - Disposition: HOME - Home Medications Comprehensive Discharge Medication List: Ambulatory Orders Vits #93/Iron Fum/FA [ Formula Tablet] 1 each PO DAILY Acetaminophen [Tylenol .Regular Strength -] 325 mg PO DAILY PRN 02/07/17 Acetaminophen [Tylenol .Regular Strength -] 650 mg PO Q4H PRN #0 tablet Ferrous Sulfate [Feosol] 325 mg PO BID #60 tab 02/10/17 Ibuprofen [Motrin -] 600 mg PO Q4H PRN #30 tablet 02/10/17 Vitamins (Sjr) - 1 tab PO DAILY tablet 02/10/17
[2017-02-11 08:42] VITALS: BP 122/67; PULSE 89; TEMP 97.7
[2017-02-11] MEDS: FERROUS SO4 325 MG TABLET (FP) PO SCH (09:47)
[2017-02-11] MEDS: PRENATAL VITAMINS W/ FOLIC ACID TABLET (FP) PO SCH (09:47)
[2017-02-11] MEDS: ENOXAPARIN NA (PORCINE) 40 MG/0.4 ML DISP.SYRIN SQ SCH (09:48)
[2017-02-11] MEDS: IBUPROFEN 600 MG TABLET (FP) PO PRN (09:48)
[2017-02-11] MEDS: SIMETHICONE 80 MG TAB.CHEW (FP) PO PRN (09:48)
[2017-02-11] MEDS: ACETAMINOPHEN 325 MG TABLET (FP) PO PRN (09:50)
--- NOTE | 2017-02-13 15:41 | PATH ---
Surgical Pathology Report Patient Name: CRISTAL NUR Med. Rec. 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 Specimen(s) Received PLACENTA Clinical History Premature rupture of membranes, rupture > 24 hours; failed induction Primary c/section Final Diagnosis PLACENTA, DELIVERY: FOCALLY DISRUPTED THIRD TRIMESTER PLACENTA WITH FOCAL PARENCHYMAL HEMORRHAGE, MILD INCREASE IN PREVILLOUS FIBRIN DEPOSITION, THREE VESSEL UMBILICAL CORD, AND PLACENTAL MEMBRANES WITH FOCAL ACUTE CHORIOAMNIONITIS. Electronically Signed Yfn Berrios M.D. Gross Description The specimen is received fresh, labeled "placenta" and is a 590 gram, 15.0 x 14.5 x 4.0 cm placenta with attached membranes and umbilical cord. The attached membranes are seaman with focal opacities and insert marginally. The umbilical cord measures 52 cm in length and averages 1 cm in diameter. The cord inserts eccentrically, 1.5 cm to the nearest margin. No true knots or strictures are identified. Cut surface of the umbilical cord reveals 3 vessels. The surface is raza-blue with fibrin deposition and appropriate caliber vessels. The maternal surface is red-brown with focal defects. Sectioning reveals a 1.3 cm in greatest dimension hemorrhagic lesion. The remaining placental parenchyma is red-brown and spongy. Steam Shovel Engineer sections are submitted in 4 cassettes as follows: 1-membrane rolls and umbilical cord; 2-lesion; 4-6-aepg-thickness sections of placenta. 02/12/2017 [facility]02/12/2017
== END 2017-02-11 11:45 | disposition home or self-care (01) | DRG 540 ==
LOC: JDEL 21:40 → JLDR 22:00 → J3W 02-08 02:20
PROVIDERS: ADMIT Obstetrics & Gynecology; ATTEND Obstetrics & Gynecology
PROC: 10D00Z1 Extraction of Products of Conception, Low, Open Approach (ICD-10-PCS; principal; 2017-02-07)
PROC: 3E0P7GC Introduction of Other Therapeutic Substance into Female Reproductive, Via Natural or Artificial Opening (ICD-10-PCS; 2017-02-07)
DX: O61.0 Failed medical induction of labor (principal); O69.1XX0 Labor and delivery complicated by cord around neck, with compression, not applicable or unspecified; O99.213 Obesity complicating pregnancy, third trimester; E66.01 Morbid (severe) obesity due to excess calories; Z68.42 Body mass index [BMI] 45.0-49.9, adult; O99.02 Anemia complicating childbirth; Z71.3 Dietary counseling and surveillance; Z3A.39 39 weeks gestation of pregnancy; Z37.0 Single live birth
CPT/HCPCS: 36415; 76815-TC; 80048; 85025; 85610; 85730; 86593; 86850; 86900; 86901; 88307-TC; 94010

== ENCOUNTER 2017-05-24 00:29 | Emergency (ER) | payer OTHER ==
--- NOTE | 2017-05-24 01:29 | PDOC ---
History of Present Illness - General Stated Complaint: ABDOMINAL PAIN DAVID ELIZONDO Time Seen by Provider: 05/24/17 01:29 - History of Present Illness Initial Comments: 32 year old female presenting with RUQ abdominal pain for the past few hours. She was at [facility] two weeks ago for the same abdominal pain during which they performed a CT that she states did not show anything. They recommended that she follow up with her PCP to obtain a RUQ US but she did not follow up because of scheduling issues and lack of consistent symptoms. She describes the pain as sharp 6/10-9/10 non-radiating pain. She does not note a parandial relation but did have an exacerbation this evening after eating some cookies, butter, and milk. She denies fevers, chills, nausea, vomting, diarrhea, constipation, chest pain, headache, or other symptoms. 05/24/17 04:02 Past History - Past Medical History Allergies/Adverse Reactions: Allergies Allergy/AdvReac Type Severity Reaction Status Date / Time shellfish derived Allergy Verified 05/24/17 01:53 sea food Allergy Uncoded 05/24/17 01:53 Asthma: No Cancer: No Cardiac Disorders: No Diabetes: No HTN: No Seizures: No Thyroid Disease: No - Psycho/Social/Smoking Cessation Hx Anxiety: No Suicidal Ideation: No Smoking Status: No Smoking History: Never smoked Have you smoked in the past 12 months: No Number of Cigarettes Smoked Daily: 0 Cigars Per Day: 0 Hx Alcohol Use: No Drug/Substance Use Hx: No Substance Use Type: None Hx Substance Use Treatment: No Review of Systems - Review of Systems Constitutional: No: Chills, Fever, Loss of Appetite HEENTM: No: Blurred Vision, Double Vision Respiratory: No: Cough, Shortness of Breath, SOB with Exertion Cardiac (ROS): No: Chest Pain, Edema, Lightheadedness ABD/GI: No: Constipated, Nausea *Physical Exam - Physical Exam General Appearance: Yes: Nourished, Appropriately Dressed. No: Apparent Distress HEENT: positive: EOMI, CHELO, Normal ENT Inspection, Normal Voice Neck: positive: Trachea midline, Normal Thyroid, Rigid, Supple. negative: Tender Respiratory/Chest: positive: Lungs Clear, Normal Breath Sounds. negative: Chest Tender, Respiratory Distress Cardiovascular: positive: Regular Rhythm, Regular Rate, S1, S2. negative: Murmur Gastrointestinal/Abdominal: positive: Normal Bowel Sounds, Tender (RUQ tendernesss to palpation.). negative: Flat, Soft Musculoskeletal: positive: Normal Inspection Extremity: positive: Normal Inspection, Normal Range of Motion Integumentary: positive: Normal Color, Dry, Warm Neurologic: positive: Fully Oriented, Alert, Normal Mood/Affect, Normal Response , Motor Strength / ED Treatment Course - LABORATORY CBC & Chemistry Diagram: 05/24/17 03:00 05/24/17 03:00 Medical Decision Making - Medical Decision Making 32 year old female with RUQ pain concerning most likely for cholelithiasis. Will rule out liver pathologies, infectious pathology, or . 05/24/17 04:26 CBC, CMP, UA, and U-Preg all WNL. Pain much better after 1G IV tylenol, famotidine, and Maalox. Patient sent home feeling better and with instructions to follow [facility] or to return to ED if pain worse. 05/24/17 04:50 *DC/Admit/Observation/Transfer Diagnosis at time of Disposition: Abdominal pain - Discharge Dispostion Disposition: HOME Condition at time of disposition: Improved Admit: No - Referrals Referrals: Maile Elizondo [Primary Care Provider] - - Patient Instructions Additional Instructions: You came to us for abdominal pain that we believe you need an ultrasound for. We gave you some medications that helped reduce your pain. You can take Tylenol and Maalox at home to help your symptoms. Please follow up in the daytime, either in the ED or with your primary care physician to get an ultrasound. Please return if you have any worsening symptoms or new symptoms. - Attestations Physician Attestion: Dr. Raymundo attests this note. 05/24/17 04:27 05/24/17 04:31 05/24/17 05:18
--- NOTE | 2017-05-24 01:52 | PDOC ---
Attending Attestation - Resident Resident Name: Kristel Raymundo - ED Attending Attestation I have performed the following: I have examined & evaluated the patient, The case was reviewed & discussed with the resident, I agree w/resident's findings & plan, Exceptions are as noted - HPI HPI: 05/24/17 02:23 RUQ pain for several days. Pt is post three weeks. Denies fever. Pt was referred to GI and US at another hospital, but has not had study done. - Physicial Exam PE: 05/24/17 02:22 *Physical Exam General Appearance: Yes: Appropriately Dressed. No: Apparent Distress, Intoxicated HEENT: positive: EOMI, CHELO, Normal ENT Inspection, Normal Voice, TMs Normal, Pharynx Normal. negative: Pale Conjunctivae, Photophobia, Scleral Icterus (R), Scleral Icterus (L) Neck: positive: Trachea midline, Normal Thyroid, Supple. negative: Tender, Rigid, Carotid bruit, Stridor, Lymphadenopathy (R), Lymphadenopathy (L), Thyromegaly Respiratory/Chest: positive: Lungs Clear, Normal Breath Sounds. negative: Chest Tender, Respiratory Distress, Accessory Muscle Use, Labored Respiration, RES, Crackles, Rales, Rhonchi, Stridor, Wheezing, Dullness Cardiovascular: positive: Regular Rhythm, Regular Rate, S1, S2. negative: Edema , JVD, Murmur, Bradycardia, Tachycardia Vascular Pulses: Dorsalis-Pedis (R): 2+, Doralis-Pedis (L): 2+ Gastrointestinal/Abdominal: positive: Normal Bowel Sounds, Flat, Soft. obese RUQ tenderness negative: Organomegaly, Pulsatile Mass, Increased Bowel Sounds , Decreased BS, Distended, Guarding, Rebound, Hernia, Hepatomegaly, Spleenomegaly Lymphatic: negative: Adenopathy, Tenderness Musculoskeletal: positive: Normal Inspection. negative: CVA Tenderness, Decreased Range of Motion Extremity: positive: Normal Capillary Refill, Normal Inspection, Normal Range of Motion, Pelvis Stable. negative: Tender, Pedal Edema, Swelling, Erythema Integumentary: positive: Normal Color, Dry, Warm. negative: Cyanotic, Erythema , Jaundice, Rash Neurologic: positive: inventory planner II-XII NML intact, Fully Oriented, Alert, Normal Mood/ Affect, Motor Strength 5/5. negative: EOM Palsy, Facial Droop, Sensory Deficit - Medical Decision Making 05/24/17 02:26 Pt will be given medication that is safe in . Pt advised to have US gallbladder done.
[2017-05-24 01:53] VITALS: BP 119/75; PULSE 75; TEMP 97.5; BMI 38.7
[2017-05-24] MEDS ORDERED: ACETAMINOPHEN 1000 MG/100 ML VIAL (NON FORMULARY) IVPB ONE (02:24)
[2017-05-24] MEDS ORDERED: FAMOTIDINE 20 MG/50 ML IVPB 50 ML IVPB ONE ×2 (02:27→02:56)
[2017-05-24] MEDS ORDERED: MAG HYDROX/AL HYDROX/SIMETH 30 ML UNIT-DOSE CUP PO ONE (02:28)
[2017-05-24] MEDS ORDERED: ACETAMINOPHEN INJECTION 100 ML IVPB ONE (02:56)
[2017-05-24] MEDS ORDERED: MAG HYDROX/AL HYDROX/SIMETH 30 ML UNIT-DOSE CUP ONE (02:56)
[2017-05-24 03:21] LABS: EOSINOPHIL 2.3 % (0-4.5); MEAN CELL VOLUME 78.7 fl (80-96); MEAN PLT VOLUME 8.6 fl (7.5-11.1); NEUTROPHILS 63.6 % (42.8-82.8); PLATELET COUNT 252 K/MM3 (134-434); RDW 15.2 % (11.6-15.6); WHITE BLOOD COUNT 8.1 K/mm3 (4.0-10.0)
[2017-05-24 03:44] LABS: ALBUMIN 3.7 g/dl (3.4-5.0); ALK PHOS 102 U/L (45-117); ANION GAP 10 (8-16); BILIRUBIN,TOTAL 0.3 mg/dL (0.2-1.0); CALCIUM 9.1 mg/dL (8.5-10.1); CO2 29 mmol/L (21-32); CREATININE 0.6 mg/dL (0.55-1.02); GLUCOSE,RANDOM 119 mg/dL (74-106); SGOT/AST 53 U/L (15-37); SGPT/ALT 50 U/L (12-78); TOT PROT 7.3 g/dl (6.4-8.2)
[2017-05-24 03:45] LABS: URINE APPEARANCE CLOUDY; URINE BILIRUBIN NEGATIVE (NEGATIVE); URINE BLOOD NEGATIVE (NEGATIVE); URINE COLOR YELLOW; URINE GLUCOSE (UA) NEGATIVE (NEGATIVE); URINE KETONE NEGATIVE (NEGATIVE); URINE LEUK ESTERASE NEGATIVE (NEGATIVE); URINE NITRITE NEGATIVE (NEGATIVE); URINE PROTEIN NEGATIVE (NEGATIVE); URINE UROBILINOGEN NEGATIVE mg/dL (0.2-1.0)
--- NOTE | 2017-05-25 07:30 | HP ---
CHIEF COMPLAINT: PRESENTED C/O DAY HISTORY OF FLANK PAIN AND CHILLS. PAIN WAS 10/10 IN INTENSITY . PCP: HISTORY OF PRESENT ILLNESS: ER course was notable for: (1) (2) (3) Recent Travel: PAST MEDICAL HISTORY: PAST SURGICAL HISTORY: Social History: Smoking: Alcohol: Drugs: Family History: Allergies shellfish derived Allergy (Verified 05/24/17 01:53) sea food Allergy (Uncoded 05/24/17 01:53) HOME MEDICATIONS: REVIEW OF SYSTEMS CONSTITUTIONAL: Absent: fever, chills, diaphoresis, generalized weakness, malaise, loss of appetite, weight change HEENT: Absent: rhinorrhea, nasal congestion, throat pain, throat swelling, difficulty swallowing, mouth swelling, ear pain, eye pain, visual changes CARDIOVASCULAR: Absent: chest pain, syncope, palpitations, irregular heart rate, lightheadedness , peripheral edema RESPIRATORY: Absent: cough, shortness of breath, dyspnea with exertion, orthopnea, wheezing, stridor, hemoptysis GASTROINTESTINAL: Absent: abdominal pain, abdominal distension, nausea, vomiting, diarrhea, constipation, melena, hematochezia GENITOURINARY: Absent: dysuria, frequency, urgency, hesitancy, hematuria, flank pain, genital pain MUSCULOSKELETAL: Absent: myalgia, arthralgia, joint swelling, back pain, neck pain SKIN: Absent: rash, itching, pallor HEMATOLOGIC/IMMUNOLOGIC: Absent: easy bleeding, easy bruising, lymphadenopathy, frequent infections ENDOCRINE: Absent: unexplained weight gain, unexplained weight loss, heat intolerance, cold intolerance NEUROLOGIC: Absent: headache, focal weakness or paresthesias, dizziness, unsteady gait, seizure, mental status changes, bladder or bowel incontinence PSYCHIATRIC: Absent: anxiety, depression, suicidal or homicidal ideation, hallucinations. PHYSICAL EXAMINATION GENERAL: Awake, alert, and fully oriented, in no acute distress. HEAD: Normal with no signs of trauma. EYES: Pupils equal, round and reactive to light, extraocular movements intact, sclera anicteric, conjunctiva clear. No lid lag. EARS, NOSE, THROAT: Ears normal, nares patent, oropharynx clear without exudates. Moist mucous membranes. NECK: Normal range of motion, supple without lymphadenopathy, JVD, or masses. LUNGS: Breath sounds equal, clear to auscultation bilaterally. No wheezes, and no crackles. No accessory muscle use. HEART: Regular rate and rhythm, normal S1 and S2 without murmur, rub or gallop. ABDOMEN: Soft, nontender, not distended, normoactive bowel sounds, no guarding, no rebound, no masses. No hepatomegaly or splenomegaly. MUSCULOSKELETAL: Normal range of motion at all joints. No bony deformities or tenderness. No CVA tenderness. UPPER EXTREMITIES: 2+ pulses, warm, well-perfused. No cyanosis. No clubbing. No peripheral edema. LOWER EXTREMITIES: 2+ pulses, warm, well-perfused. No calf tenderness. No peripheral edema. NEUROLOGICAL: Cranial nerves II-XII intact. Normal speech. Normal gait. PSYCHIATRIC: Cooperative. Good eye contact. Appropriate mood and affect. SKIN: Warm, dry, normal turgor, no rashes or lesions noted, normal capillary refill. Laboratory Results - last 24 hr 05/24/17 03:29 Urine Color Yellow Urine Appearance Cloudy Urine pH 7.0 Ur Specific [place] 1.020 Urine Protein Negative Urine Glucose (UA) Negative Urine Ketones Negative Urine Blood Negative Urine Nitrite Negative Urine Bilirubin Negative Urine Urobilinogen Negative Ur Leukocyte Esterase Negative Urine HCG, Qual Negative ASSESSMENT/PLAN:
== END 2017-05-24 04:45 | disposition home or self-care (01) ==
LOC: JER 00:29
PROC: 3E033GC Introduction of Other Therapeutic Substance into Peripheral Vein, Percutaneous Approach (ICD-10-PCS; principal; 2017-05-24)
PROC: 3E033NZ Introduction of Analgesics, Hypnotics, Sedatives into Peripheral Vein, Percutaneous Approach (ICD-10-PCS; 2017-05-24)
DX: O90.89 Other complications of the puerperium, not elsewhere classified (principal); R10.11 Right upper quadrant pain
CPT/HCPCS: 36415; 80053; 81003; 84703; 85025; 96365; 96375; 99282-25

== ENCOUNTER 2017-06-18 17:59 | Emergency (ER) | payer OTHER ==
[2017-06-18 18:03] VITALS: BMI 37.1
[2017-06-18 20:17] LABS: BASOPHIL 1.3 % (0-2.0); EOSINOPHIL 3.4 % (0-4.5); MCH 26.7 pg (25.7-33.7); MCHC 33.2 g/dl (32.0-36.0); MEAN CELL VOLUME 80.4 fl (80-96); MEAN PLT VOLUME 8.6 fl (7.5-11.1); NEUTROPHILS 61.9 % (42.8-82.8); PLATELET COUNT 278 K/MM3 (134-434); RDW 14.4 % (11.6-15.6); WHITE BLOOD COUNT 8.6 K/mm3 (4.0-10.0)
[2017-06-18 20:31] LABS: URINE APPEARANCE CLOUDY; URINE BILIRUBIN NEGATIVE (NEGATIVE); URINE BLOOD NEGATIVE (NEGATIVE); URINE COLOR LTYELLOW; URINE GLUCOSE (UA) NEGATIVE (NEGATIVE); URINE KETONE NEGATIVE (NEGATIVE); URINE LEUK ESTERASE TRACE (NEGATIVE); URINE NITRITE NEGATIVE (NEGATIVE); URINE PROTEIN NEGATIVE (NEGATIVE); URINE UROBILINOGEN NEGATIVE mg/dL (0.2-1.0)
--- NOTE | 2017-06-18 20:40 | PDOC ---
History of Present Illness - General Chief Complaint: Pain Stated Complaint: UPPER ABDOMINAL PAIN Time Seen by Provider: 06/18/17 19:15 History Source: Patient Exam Limitations: No Limitations - History of Present Illness Travel History: No Initial Comments: 06/18/17 21:41 32yo Female patient with no significant past medical history presents to ED c/o worsening RUQ pain. Patient was seen in this ED on 05/24/2017 for similar symptoms, but had been evaluated at [facility] 2 weeks prior for RUQ pain, with CT-Abd/Pelvis: Negative. Patient was treated with antiemetic and Maalox in this ED with relief of symptoms then d/c'd home with f/u to PCP. Patient had outpatient US Rx by Dr. Heath 06/08/2017 which showed Fatty Liver and Cholelithiasis. Patient states she has a scheduled appointment with Dr. Baldwin July 02, but pain return tonight as initially. LNMP: May 14. Patient denies n/v/d, fever, CP, back pain, dysuria, hematuria, diff breathing, SOB, or any other complaints at this time. Timing/Duration: reports: intermittent Quality: reports: moderate, stabbing Abdominal Pain Onset Location: reports: RUQ Pain Radiation: reports: no radiation Activities at Onset: reports: none Treatment Prior to Arrive: improves with: analgesics, antacids. worse with: cold pack, heat, laxative, enema, other Past History - Travel Traveled outside of the country in the last 30 days: No Close contact w/someone who was outside of country & ill: No - Past Medical History Allergies/Adverse Reactions: Allergies Allergy/AdvReac Type Severity Reaction Status Date / Time shellfish derived Allergy Verified 06/18/17 18:01 sea food Allergy Uncoded 06/18/17 18:01 Home Medications: Ambulatory Orders Ibuprofen [Motrin -] 600 mg PO Q6H PRN #30 tablet 06/18/17 Oxycodone HCl/Acetaminophen [Percocet 5-325 mg Tablet] 1 tab PO Q6H PRN #12 tablet MDD 4 tabs 06/18/17 Asthma: No Cancer: No Cardiac Disorders: No Diabetes: No HTN: No Seizures: No Thyroid Disease: No - Immunization History Td Vaccination: Yes Immunization Up to Date: Yes - Suicide/Smoking/Psychosocial Hx Smoking Status: No Smoking History: Never smoked Have you smoked in the past 12 months: No Number of Cigarettes Smoked Daily: 0 Cigars Per Day: 0 Information on smoking cessation initiated: No Hx Alcohol Use: No Drug/Substance Use Hx: No Substance Use Type: None Hx Substance Use Treatment: No Abd/GI Specific PMHX - Complaint Specific PMHX Colitis: No Diverticulitis: No Gall Bladder Disease: No GERD: No Hepatitis: No Irritable Bowel Synd (IBS): No Pancreatitis: No GI Ulcer Disease: No Review of Systems - Review of Systems Able to Perform ROS?: No Is the patient limited Croatian proficient: No Constitutional: No: Chills, Fever Cardiac (ROS): No: Chest Pain ABD/GI: Yes: Abdominal cramping. No: Constipated, Diarrhea, Nausea, Poor Appetite, Poor Fluid Intake, Rectal Bleeding, Vomiting, Indigestion : No: Burning, Dysuria, Discharge, Hematuria All Other Systems: Reviewed and Negative *Physical Exam - Vital Signs Last Vital Signs Temp Pulse Resp BP Pulse Ox 98.3 F 90 18 126/69 100 06/18/17 18:01 06/18/17 18:01 06/18/17 18:01 06/18/17 18:01 06/18/17 18:01 - Physical Exam General Appearance: Yes: Nourished, Appropriately Dressed. No: Apparent Distress, Mild Distress, Moderate Distress, Severe Distress HEENT: positive: EOMI, CHELO, Normal ENT Inspection, Normal Voice, Symmetrical, TMs Normal, Pharynx Normal. negative: Pale Conjunctivae, Scleral Icterus (R), Scleral Icterus (L) Neck: positive: Trachea midline, Normal Thyroid, Supple. negative: Rigid, Stridor, Lymphadenopathy (R), Lymphadenopathy (L), Rigidity Respiratory/Chest: positive: Lungs Clear, Normal Breath Sounds. negative: Chest Tender, Respiratory Distress, Accessory Muscle Use, Labored Respiration, Rapid RR, Rhonchi, Stridor, Wheezing Cardiovascular: positive: Regular Rhythm, Regular Rate Gastrointestinal/Abdominal: positive: Soft, Increased Bowel Sounds, Other ( Large Abdomen. Negative Padilla's). negative: Normal Bowel Sounds, Tender, Flat , Distended, Guarding, Rebound, Tenderness Musculoskeletal: positive: Normal Inspection. negative: CVA Tenderness Extremity: positive: Normal Capillary Refill, Normal Inspection, Normal Range of Motion. negative: Pedal Edema, Swelling, Calf Tenderness, Erythema, Inflammation Integumentary: positive: Normal Color, Dry, Warm. negative: Bruising Neurologic: positive: latrine cleaner II-XII NML intact, Fully Oriented, Alert, Normal Mood/ Affect, Normal Response, Motor Strength 02/01 ED Treatment Course - LABORATORY CBC & Chemistry Diagram: 06/18/17 19:27 06/18/17 20:09 - ADDITIONAL ORDERS Additional order review: Laboratory Results 06/18/17 20:05 Urine HCG, Qual Negative 06/18/17 19:27 RBC 4.48 MCV 80.4 MCHC 33.2 RDW 14.4 MPV 8.6 Neutrophils % 61.9 Lymphocytes % 23.8 Monocytes % 9.6 Eosinophils % 3.4 Basophils % 1.3 *DC/Admit/Observation/Transfer Diagnosis at time of Disposition: Cholelithiasis Qualifiers: Cholelithiasis location: other site Biliary obstruction: without biliary obstruction Qualified Code(s): K80.80 - Other cholelithiasis without obstruction - Discharge Dispostion Disposition: HOME Condition at time of disposition: Stable Admit: No - Prescriptions Prescriptions: Ibuprofen [Motrin -] 600 mg PO Q6H PRN #30 tablet PRN Reason: Mild Pain Oxycodone HCl/Acetaminophen [Percocet 5-325 mg Tablet] 1 tab PO Q6H PRN #12 tablet MDD 4 tabs PRN Reason: Severe Pain - Referrals Referrals: Sarbjit De Dios MD [Primary Care Provider] - Clement Baldwin MD [Staff Physician] - - Patient Instructions Printed Discharge Instructions: DI for Gallstones Additional Instructions: Follow up with Dr. Baldwin as scheduled. Motrin for pain as needed. Use Tylenol sparingly. Drink plenty fluids. Call Dr. Baldwin to see if you can have a closer appointment. Print Language: MALAY
[2017-06-18 20:54] LABS: URINE BACTERIA MANY /hpf (NONE SEEN); URINE MUCUS RARE; URINE WBC <1 /hpf (3-5)
[2017-06-18 21:06] LABS: ALBUMIN 3.5 g/dl (3.4-5.0); ALK PHOS 101 U/L (45-117); ANION GAP 6 (8-16); BILIRUBIN,DIRECT < 0.1 mg/dL (0.0-0.2); BILIRUBIN,TOTAL 0.2 mg/dL (0.2-1.0); CALCIUM 8.6 mg/dL (8.5-10.1); CO2 26 mmol/L (21-32); CREATININE 0.5 mg/dL (0.55-1.02); GLUCOSE,RANDOM 91 mg/dL (74-106); SGPT/ALT 33 U/L (12-78); TOT PROT 7.2 g/dl (6.4-8.2)
[2017-06-18 21:11] LABS: SGOT/AST 40 U/L (15-37)
[2017-06-18] MEDS ORDERED: KETOROLAC TROMETHAMINE 30 MG/1 ML VIAL IM ONE (21:41)
[2017-06-18] MEDS ORDERED: KETOROLAC TROMETHAMINE 30 MG/1 ML VIAL ONE (21:58)
[2017-06-18 22:34] VITALS: BP 120/78; PULSE 80; TEMP 98.1
== END 2017-06-18 22:34 | disposition home or self-care (01) ==
LOC: JER 17:59
PROC: 3E0233Z Introduction of Anti-inflammatory into Muscle, Percutaneous Approach (ICD-10-PCS; principal; 2017-06-18)
DX: K80.20 Calculus of gallbladder without cholecystitis without obstruction (principal)
CPT/HCPCS: 36415; 80048; 80076; 81003; 81015; 84703; 85025; 96372; 99283-25

== ENCOUNTER 2017-10-06 17:04 | Emergency (ER) | payer OTHER ==
[2017-10-06 17:25] VITALS: BMI 39.1
--- NOTE | 2017-10-06 17:27 | PDOC ---
History of Present Illness - General Stated Complaint: PAIN Time Seen by Provider: 10/06/17 17:26 Past History - Past Medical History Allergies/Adverse Reactions: Allergies Allergy/AdvReac Type Severity Reaction Status Date / Time shellfish derived Allergy Verified 10/06/17 17:25 sea food Allergy Uncoded 10/06/17 17:25 Home Medications: Ambulatory Orders Ibuprofen [Motrin -] 600 mg PO Q6H PRN #30 tablet 06/18/17 Oxycodone HCl/Acetaminophen [Percocet 5-325 mg Tablet] 1 tab PO Q6H PRN #12 tablet MDD 4 tabs 06/18/17 Asthma: No Cancer: No Cardiac Disorders: No Diabetes: No HTN: No Seizures: No Thyroid Disease: No - Immunization History Td Vaccination: Yes Immunization Up to Date: Yes - Suicide/Smoking/Psychosocial Hx Smoking Status: No Smoking History: Never smoked Have you smoked in the past 12 months: No Number of Cigarettes Smoked Daily: 0 Cigars Per Day: 0 Hx Alcohol Use: No Drug/Substance Use Hx: No Substance Use Type: None Hx Substance Use Treatment: No *Physical Exam - Vital Signs Last Vital Signs Temp Pulse Resp BP Pulse Ox 98 F 99 H 18 117/74 100 10/06/17 17:20 10/06/17 17:20 10/06/17 17:20 10/06/17 17:20 10/06/17 17:20
--- NOTE | 2017-10-06 17:36 | PDOC ---
History of Present Illness - General Chief Complaint: Pain Stated Complaint: PAIN Time Seen by Provider: 10/06/17 17:26 History Source: Patient Exam Limitations: No Limitations - History of Present Illness Initial Comments: 10/06/17 18:19 CHIEF COMPLAINT: Cough HISTORY OF PRESENT ILLNESS: This is a 32 year old year old female with biliary colic. She was originally scheduled for cholecystectomy here on 10/04, but the case was cancelled for URI symptoms. She was started on amoxicillin by her PCP on Saturday with some improvement, but she continues to have cough productive of green sputum, throat pain, and bilateral ear pain (she was also prescribed a Medrol dose pack, but did not take it). She has had persistent RUQ pain that is partially relieved by ibuprofen. She thinks her pain today may have been triggered by eating a small amount of cheese. She does not feel that she can delay her surgery further. V/s on arrival are notable for P 99. REVIEW OF SYSTEMS: GENERAL/CONSTITUTIONAL: No fever or chills. No weakness. No weight change. HEAD, EYES, EARS, NOSE AND THROAT: Throat pain, bilateral ear pain. CARDIOVASCULAR: No chest pain or palpitations. RESPIRATORY: Cough productive of green sputum. GASTROINTESTINAL: Nausea, RUQ pain. No diarrhea or constipation. GENITOURINARY: No dysuria, frequency, or change in urination. MUSCULOSKELETAL: No joint or muscle swelling or pain. No neck or back pain. SKIN: No rash or easy bruising. NEUROLOGIC: No headache, vertigo, loss of consciousness, or loss of sensation. PSYCHIATRIC: No depression or anxiety. ENDOCRINE: No increased thirst. No abnormal weight change. HEMATOLOGIC/LYMPHATIC: No anemia, easy bleeding, or history of blood clots. ALLERGIC/IMMUNOLOGIC: No hives or skin allergy. No latex allergy. PHYSICAL EXAM: GENERAL: The patient is awake, alert, and fully oriented, in no acute distress. HEAD: Normal with no signs of trauma. ENT: Pupils equal, round and reactive to light, extraocular movements intact, sclera anicteric, conjunctiva clear. Neck supple. Auditory canals and TMs normal. No pharyngeal erythema. LUNGS: Clear to auscultation bilaterally. Normal excursion. No respiratory distress or use of accessory muscles. CV: RRR, S1/S2, no MRG. Cap refill < 2 sec. ABDOMEN: Soft, non-distended, tender to palpation in RUQ. EXTREMITIES: Normal range of motion, no edema. NEUROLOGICAL: Normal speech, normal gait. CN II-XII grossly intact. PSYCH: Normal mood, normal affect. SKIN: Warm, dry, normal turgor, no rashes or lesions noted. Past History - Past Medical History Allergies/Adverse Reactions: Allergies Allergy/AdvReac Type Severity Reaction Status Date / Time shellfish derived Allergy Verified 10/06/17 17:25 sea food Allergy Uncoded 10/06/17 17:25 Home Medications: Ambulatory Orders Ibuprofen [Motrin -] 600 mg PO Q6H PRN #30 tablet 06/18/17 Oxycodone HCl/Acetaminophen [Percocet 5-325 mg Tablet] 1 tab PO Q6H PRN #12 tablet MDD 4 tabs 06/18/17 Asthma: No Cancer: No Cardiac Disorders: No Diabetes: No HTN: No Seizures: No Thyroid Disease: No - Immunization History Td Vaccination: Yes Immunization Up to Date: Yes - Suicide/Smoking/Psychosocial Hx Smoking Status: No Smoking History: Never smoked Have you smoked in the past 12 months: No Number of Cigarettes Smoked Daily: 0 Cigars Per Day: 0 Hx Alcohol Use: No Drug/Substance Use Hx: No Substance Use Type: None Hx Substance Use Treatment: No *Physical Exam - Vital Signs Last Vital Signs Temp Pulse Resp BP Pulse Ox 98 F 99 H 18 117/74 100 10/06/17 17:20 10/06/17 17:20 10/06/17 17:20 10/06/17 17:20 10/06/17 17:20 ED Treatment Course - LABORATORY CBC & Chemistry Diagram: 10/06/17 18:00 10/06/17 18:00 Medical Decision Making - Medical Decision Making 10/06/17 18:29 A/P: 32 year old female with biliary colic, complicated by URI. 1. Labs including CBC, CMP 2. CXR to r/o infiltrate 3. Gallbladder u/s to r/o cholecystits 4. Hydromorphone 0.5mg IVP for pain 5. Message left for Dr. Valles 10/06/17 18:30 UA with 10 WBCs.
[2017-10-06 18:09] LABS: BASO % 1.3 % (0-2.0); EOS % 3.2 % (0-4.5); HEMATOCRIT 36.9 % (32.4-45.2); HEMOGLOBIN 12.3 GM/dL (10.7-15.3); LYMPH % 31.1 % (8-40); MCH 26.8 pg (25.7-33.7); MCHC 33.3 g/dl (32.0-36.0); MEAN CELL VOLUME 80.5 fl (80-96); MEAN PLT VOLUME 8.1 fl (7.5-11.1); MONO % 10.4 % (3.8-10.2); PLATELET COUNT 256 K/MM3 (134-434); RBC 4.59 M/mm3 (3.60-5.2); RDW 14.6 % (11.6-15.6); WHITE BLOOD COUNT 8.4 K/mm3 (4.0-10.0)
[2017-10-06 18:13] LABS: HCG,QUALITATIVE URINE NEGATIVE; URINE APPEARANCE CLEAR; URINE BILIRUBIN NEGATIVE (NEGATIVE); URINE BLOOD NEGATIVE (NEGATIVE); URINE COLOR YELLOW; URINE GLUCOSE (UA) NEGATIVE (NEGATIVE); URINE KETONE NEGATIVE (NEGATIVE); URINE NITRITE NEGATIVE (NEGATIVE); URINE PROTEIN NEGATIVE (NEGATIVE); URINE UROBILINOGEN NEGATIVE mg/dL (0.2-1.0)
[2017-10-06 18:15] LABS: URINE LEUK ESTERASE 1+ (NEGATIVE)
[2017-10-06 18:18] LABS: EPI CELLS RARE /HPF (FEW); URINE BACTERIA RARE /hpf (NONE SEEN); URINE MUCUS RARE
[2017-10-06 18:31] LABS: ALBUMIN 3.8 g/dl (3.4-5.0); ANION GAP 8 (8-16); BILIRUBIN,TOTAL 0.3 mg/dL (0.2-1.0); BLOOD UREA NITROGEN 11 mg/dL (7-18); CALCIUM 8.9 mg/dL (8.5-10.1); CHLORIDE 104 mmol/L (98-107); CO2 27 mmol/L (21-32); CREATININE 0.7 mg/dL (0.55-1.02); GLUCOSE,RANDOM 108 mg/dL (74-106); POTASSIUM 4.2 mmol/L (3.5-5.1); SGOT/AST 81 U/L (15-37); SGPT/ALT 52 U/L (12-78); SODIUM 139 mmol/L (136-145); TOT PROT 7.3 g/dl (6.4-8.2)
[2017-10-06 18:33] LABS: ALK PHOS 81 U/L (45-117); BILIRUBIN,DIRECT < 0.2 mg/dL (0.0-0.2)
[2017-10-06] MEDS ORDERED: HYDROmorphone HCL CARPU-JECT 1 MG/1 ML DISP.SYRIN IVPUSH ONE (18:55)
[2017-10-06] MEDS ORDERED: HYDROmorphone HCL CARPU-JECT 1 MG/1 ML DISP.SYRIN ONE (19:14)
--- NOTE | 2017-10-06 20:36 | PDOC ---
*Physical Exam - Vital Signs Last Vital Signs Temp Pulse Resp BP Pulse Ox 98 F 99 H 18 117/74 100 10/06/17 17:20 10/06/17 17:20 10/06/17 17:20 10/06/17 17:20 10/06/17 17:20 ED Treatment Course - LABORATORY CBC & Chemistry Diagram: 10/06/17 18:00 10/06/17 18:00 - ADDITIONAL ORDERS Additional order review: Laboratory Results 10/06/17 10/06/17 18:00 18:00 Sodium 139 Potassium 4.2 Chloride 104 Carbon Dioxide 27 Anion Gap 8 BUN 11 D Creatinine 0.7 D Random Glucose 108 H Calcium 8.9 Total Bilirubin 0.3 D Direct Bilirubin < 0.2 D AST 81 H D ALT 52 D Alkaline Phosphatase 81 Total Protein 7.3 Albumin 3.8 Urine Color Yellow Urine Appearance Clear Urine pH 6.0 Ur Specific [employer] 1.018 Urine Protein Negative Urine Glucose (UA) Negative Urine Ketones Negative Urine Blood Negative Urine Nitrite Negative Urine Bilirubin Negative Urine Urobilinogen Negative Ur Leukocyte Esterase 1+ H Urine WBC (Auto) 10 Urine RBC (Auto) 4 Ur Epithelial Cells Rare Urine Bacteria Rare Urine Mucus Rare Urine HCG, Qual Negative 10/06/17 18:00 RBC 4.59 MCV 80.5 MCHC 33.3 RDW 14.6 MPV 8.1 Neutrophils % 54.0 Lymphocytes % 31.1 D Monocytes % 10.4 H Eosinophils % 3.2 Basophils % 1.3 - Medications Given in the ED: ED Medications Discontinued Medications Generic Name Dose Route Start Last Admin Trade Name Freq PRN Reason Stop Dose Admin Hydromorphone HCl 0.5 mg 10/06/17 18:55 10/06/17 19:18 Dilaudid Injection - IVPUSH 10/06/17 18:56 0.5 mg ONCE ONE Administration Medical Decision Making - Medical Decision Making 10/06/17 20:35 Endorsed to me to follow labs and US. Patient seen and evaluated has not pain currently. abd soft and nontender patient educated about eating food that will call billary colic. patient will follow up with the surgeon tomorrow Patient Name: CRISTAL NUR THIS IS A PRELIMINARY REPORT FROM [facility] DATE OF SERVICE: 2017-10-06 19:23:47 IMAGES: 54 EXAM: US ABDOMEN RIGHT UPPER QUADRANT HISTORY: 32-year-old female evaluate for cholecystitis. COMPARISON: None. FINDINGS: Mild 18.6 cm hepatomegaly and coarse increased echogenicity consistent with fatty replacement of the liver parenchyma. No cholelithiasis. No abnormal gallbladder wall thickening. No pericholecystic fluid. Negative sonographic Padilla's sign. No cholecystitis. Common bile duct has a normal 5 mm diameter. Right kidney measures 11.4 x 3.8 x 5.1 cm. No right kidney nephrolithiasis or hydronephrosis. Aorta is patent. Inferior vena cava is patent. Portal vein is patent. Pancreatic head appears unremarkable. Pancreatic tail is obscured by overlying bowel gas. IMPRESSION: No cholelithiasis or cholecystitis. No right kidney nephrolithiasis or hydronephrosis. Mild hepatomegaly and steatosis may be associated with insulin resistance metabolic syndrome. THIS DOCUMENT HAS BEEN ELECTRONICALLY SIGNED Mervin Del Rio MD 10/06/2017 20:24 EST M.D. Please call [facility] [phone] ([phone]) with questions. INTERPRETING RADIOLOGIST: Mervin Del Rio MD Electronically Signed: Oct 06, 2017 08:27PM ES 10/06/17 21:20 I discussed the physical exam findings, ancillary test results and final diagnoses with the patient. I answered all of the patient's questions. The patient was satisfied with the care received and felt comfortable with the discharge plan and treatment plan. The Patient agrees to follow up with the primary care physician within 24-72 hours. *DC/Admit/Observation/Transfer Diagnosis at time of Disposition: Right upper quadrant abdominal pain - Discharge Dispostion Disposition: HOME Condition at time of disposition: Stable - Referrals Referrals: Maile De Dios [Primary Care Provider] - - Patient Instructions Printed Discharge Instructions: DI for Abdominal Pain-Adult Additional Instructions: Your Discharge Instructions: You must call primary care physician within 24 hours to arrange follow-up. Return to the Emergency Department with any new, persistent or worsening symptoms, for fever, chills, SOB, dizziness or any other concerning changes that may occur. - Post Discharge Activity
[2017-10-06 21:43] VITALS: BP 128/82; PULSE 86; TEMP 98.1
== END 2017-10-06 21:35 | disposition home or self-care (01) ==
LOC: JER 17:04
PROC: 3E033NZ Introduction of Analgesics, Hypnotics, Sedatives into Peripheral Vein, Percutaneous Approach (ICD-10-PCS; principal; 2017-10-06)
DX: R10.11 Right upper quadrant pain (principal); K81.9 Cholecystitis, unspecified
CPT/HCPCS: 36415; 71046-TC; 76705-TC; 80048; 80076; 81003; 81015; 84703; 85025; 96374; 99282-25

== ENCOUNTER 2017-11-29 10:04 | Day surgery (SDC) | payer OTHER ==
[2017-11-28 09:47] VITALS: BMI 40.3
--- NOTE | 2017-11-29 12:51 | HP ---
History & Physical Update - History History: No Change - Physical Physical: No Change - Assessment Assessment: No Change - Plan Plan: No Change
[2017-11-29] MEDS ORDERED: PROPOFOL 20 ML ONE ×2 (12:57)
[2017-11-29] MEDS ORDERED: fentaNYL CITRATE 250 MCG/5 ML VIAL ONE (12:57)
[2017-11-29] MEDS ORDERED: LIDOCAINE HCL/PF 2% SDV 5ML VIAL ONE (12:57)
[2017-11-29] MEDS ORDERED: MIDAZOLAM HCL 2 MG/2 ML SINGLE DOSE VIAL ONE (12:57)
[2017-11-29] MEDS ORDERED: ceFAZolin SODIUM 1 GM VIAL ONE (13:42)
[2017-11-29] MEDS ORDERED: ceFAZolin SODIUM 1 GM VIAL IVPB ONE (13:45)
[2017-11-29] MEDS ORDERED: BUPIVACAINE HCL/PF 0.5% (5MG/ML) 10 ML VIAL IJ ONE (13:49)
[2017-11-29] MEDS ORDERED: BUPIVACAINE HCL/PF 0.5% (5MG/ML) 10 ML VIAL ONE (13:53)
[2017-11-29] MEDS ORDERED: NEOSTIGMINE METHYLSULFATE 0.5 MG/ML - 10 ML MDV ONE (14:23)
[2017-11-29] MEDS ORDERED: DEXAMETHASONE SOD PHOSPHATE 4 MG/1 ML VIAL ONE (14:34)
[2017-11-29] MEDS ORDERED: GLYCOPYRROLATE 0.2 MG/1 ML VIAL ONE (14:34)
--- NOTE | 2017-11-29 14:43 | OP ---
Operative Note - Note: Operative Date: 11/29/17 Pre-Operative Diagnosis: Symptomatic cholelithiasis Operation: Laparoscopic cholecystectomy, lysis of adhesions Findings: distended GB omental adhesions Post-Operative Diagnosis: Other (omental adhesions) Surgeon: Rex Valles Engineering Assistant: Justyna Navas Anesthesia: General Specimens Removed: gallbladder Estimated Blood Loss (mls): 5 Operative Report Dictated: Yes
[2017-11-29] MEDS ORDERED: ONDANSETRON 4 MG/2 ML VIAL ONE ×2 (14:49→17:14)
--- NOTE | 2017-11-29 15:06 | SURG ---
Surgery Elevator Builder Note Elevator Builder: Justyna Navas PA-C Date of Service: 11/29/17 Diagnosis: Symptomatic cholelithiasis Procedure: Laparoscopic cholecystectomy, lysis of adhesions I was present for the entirety of the operative procedure. For further detail, please refer to operative report. Visit type - Case Type Case Type: Scheduled Admission - Emergency Emergency Visit: No - New patient This patient is new to me today: Yes Date on this admission: 11/29/17
[2017-11-29] MEDS ORDERED: ONDANSETRON 4 MG/2 ML VIAL IVPUSH PRN (15:17)
[2017-11-29] MEDS ORDERED: oxyCODONE HCL 5 MG TABLET PO PRN (15:17)
[2017-11-29] MEDS ORDERED: LACTATED RINGERS SOLUTION 1,000 ML IV SCH (15:30)
[2017-11-29] MEDS ORDERED: oxyCODONE HCL 5 MG TABLET ONE (17:09)
[2017-11-29 18:40] VITALS: BP 122/68; PULSE 66
--- NOTE | 2017-11-30 08:21 | OP ---
DATE OF OPERATION: 11/29/2017 PROCEDURE: Laparoscopic cholecystectomy. PREOPERATIVE DIAGNOSIS: Symptomatic cholelithiasis. POSTOPERATIVE DIAGNOSIS: Symptomatic cholelithiasis. SURGEON: Rex Valles MD MERCHANDISE FLOW TEAM MEMBER: ADRIANO Navas ANESTHESIA: General endotracheal. FINDINGS AND PROCEDURE: This is a 32-year-old female who presents with a 4- to 9-[id number] of right upper quadrant pain radiating to the back aggravated by fatty meals. Preoperative ultrasound revealed a slightly distended gallbladder with multiple stones and normal size common duct. Due to intermittent pain, the patient was advised removal of the gallbladder. Consent was obtained after discussing the risks, benefits, and alternatives of the procedure. DESCRIPTION OF PROCEDURE: The patient was brought to the operating room and placed in supine position. General endotracheal anesthesia was administered. The abdomen was prepped and draped in the usual sterile fashion. Using 0.5% Marcaine, local anesthesia was administered to the proposed incision sites. The peritoneal cavity was entered using the Optiview technique via a 8-mm umbilical incision. Using a 5-mm 0-degree scope, inserted a 5-mm optical port. Pneumoperitoneum was established. The peritoneal cavity was carefully inspected and was noted to be free of inadvertent injury. The patient was then placed in reverse Trendelenburg left side down position. An 11-mm port was inserted at the subxiphoid region, and two 5-mm ports were inserted at the subcostal region at the midclavicular and anterior axillary lines. The patient was noted to have hepatomegaly, and the gallbladder was noted to have adhesions of the omentum. The gallbladder fundus was grasped and retracted anteriorly, and the omental adhesions were taken down sharply using the dissector connected to monopolar cautery. This was taken down all the way to the infundibulum. The infundibulum was grasped and retracted inferolaterally to expose the triangle of Calot. The visceral peritoneum covering the triangle was scored using the hook dissector towards the gallbladder bed. This exposed the cystic duct and cystic artery. Both structures were carefully skeletonized using [place] dissector and a hook dissector. These structures were then clipped at 3 points followed by transection leaving 2 clips at each cystic artery and cystic duct stumps. Afterwards, the gallbladder was resected from its bed in antegrade fashion using the hook dissector connected to monopolar cautery. The small amount of blood was suctioned until return was clear. After the gallbladder was completely resected , the organ was placed in Endobag and extracted by the subxiphoid incision. The gallbladder bed was inspected and was noted to be free of active bleeding. The pneumoperitoneum was evacuated, and the ports were removed. The wounds were closed with subcuticular Biosyn 4-0 sutures reinforced with Dermabond. The patient was successfully extubated and transferred to the post anesthesia care unit in satisfactory condition. Estimated blood loss was about 5 mL. Wound class clean contaminated. The patient received a gram of Ancef prior to the start of the procedure. Jaya [id number] MTDD
--- NOTE | 2017-12-03 12:10 | PATH ---
Surgical Pathology Report Patient Name: CRISTAL NUR [facility]. Rec. #: [id number] /Age/Gender: 1985 (Age: 32) / F Account: [id number] Location: [facility] SURGICAL Taken: 11/29/2017 Received: 12/02/2017 Reported: 12/03/2017 Physicians: Rex Valles M.D. Specimen(s) Received GALLBLADDER Clinical History Cholelithiasis Final Diagnosis GALLBLADDER, LAPAROSCOPIC CHOLECYSTECTOMY: CHRONIC CHOLECYSTITIS, CHOLESTEROLOSIS, AND CHOLELITHIASIS. ONE BENIGN PERIDUCTAL LYMPH NODE (0/1). Electronically Signed Patricia Kirkland M.D. Gross Description Received in formalin, labeled "gallbladder," is a 8.0 x 3.5 x 3.5 cm. gallbladder with a 0.2 cm. in length portion of cystic duct attached. There is a 0.9 cm in greatest dimension seaman periductal lymph node present. The outer surface is seaman green and varies from smooth to shaggy. The lumen contains green, tenacious bile as well as multiple yellow, irregular choleliths ranging from 0.1-0.4 cm in greatest dimension. The mucosa is green and velvety. The wall of the gallbladder averages 0.1 cm. in thickness. Respiratory Equipment Assistant sections are submitted in one cassette. 12/02/201712/02/2017
[2017-12-04 12:03] VITALS: TEMP 97.8
== END 2017-11-29 18:42 | disposition home or self-care (01) ==
LOC: JASU-SURG 10:04
PROVIDERS: ATTEND Surgery
PROC: 0FT44ZZ Resection of Gallbladder, Percutaneous Endoscopic Approach (ICD-10-PCS; principal; 2017-11-29 12:00)
DX: K80.70 Calculus of gallbladder and bile duct without cholecystitis without obstruction (principal)
CPT/HCPCS: 84703; 88304-TC; 94760

== ENCOUNTER 2018-08-29 21:45 | Emergency (ER) | payer OTHER ==
[2018-08-29 22:00] VITALS: BP 134/76; PULSE 105; TEMP 98.2; BMI 41.1
--- NOTE | 2018-08-29 22:31 | PDOC ---
History of Present Illness - General Chief Complaint: Cold Symptoms Stated Complaint: Cold Symptoms Time Seen by Provider: 08/29/18 21:56 History Source: Patient Exam Limitations: No Limitations - History of Present Illness Initial Comments: 08/29/18 22:22 33 yr female 5 weeks with nasal congestion cough fever for one day. pt has no medical history. Past History - Past Medical History Allergies/Adverse Reactions: Allergies Allergy/AdvReac Type Severity Reaction Status Date / Time shellfish derived Allergy Verified 08/29/18 21:57 sea food Allergy Uncoded 08/29/18 21:57 Home Medications: Ambulatory Orders NK [No Known Home Medication] 08/29/18 Anemia: Yes (DURING ) Asthma: No Cancer: No Cardiac Disorders: No CVA: No COPD: No CHF: No Dementia: No Diabetes: No GI Disorders: No Disorders: No HTN: No Hypercholesterolemia: No Liver Disease: No Seizures: No Thyroid Disease: No - Surgical History Abdominal Surgery: No Appendectomy: No Cardiac Surgery: No Cholecystectomy: No Lung Surgery: No Neurologic Surgery: No Orthopedic Surgery: No - Immunization History Td Vaccination: Yes Immunization Up to Date: Yes - Suicide/Smoking/Psychosocial Hx Smoking Status: No Smoking History: Never smoked Have you smoked in the past 12 months: No Number of Cigarettes Smoked Daily: 0 Cigars Per Day: 0 Hx Alcohol Use: No Drug/Substance Use Hx: No Substance Use Type: None Hx Substance Use Treatment: No Respiratory Specific PMHX - Complaint Specific PMHX Angina: No Bronchitis: No Pneumonia: No Pulmonary Embolus: No TB (Tuberculosis): No Review of Systems - Review of Systems Able to Perform ROS?: Yes Is the patient limited Lithuanian proficient: Yes Constitutional: Yes: Symptoms Reported, Fever HEENTM: Yes: Symptoms Reported, Nose Congestion Respiratory: Yes: Cough. No: Shortness of Breath, Stridor, Wheezing, Productive cough Cardiac (ROS): No: Symptoms Reported ABD/GI: No: Symptoms Reported : Yes: Symptoms Reported *Physical Exam - Vital Signs Last Vital Signs Temp Pulse Resp BP Pulse Ox 98.2 F 105 H 20 134/76 110 H 08/29/18 21:57 08/29/18 21:57 08/29/18 21:57 08/29/18 21:57 08/29/18 21:57 - Physical Exam General Appearance: Yes: Nourished, Appropriately Dressed, Obese HEENT: positive: EOMI, CHELO Neck: positive: Supple. negative: Tender Respiratory/Chest: positive: Lungs Clear, Normal Breath Sounds. negative: Chest Tender, Crackles, Rales, Rhonchi, Stridor, Wheezing, Hyperresonant Cardiovascular: positive: Regular Rhythm, Regular Rate Gastrointestinal/Abdominal: positive: Normal Bowel Sounds, Soft. negative: Tender Integumentary: positive: Normal Color, Dry, Warm Neurologic: positive: Fully Oriented, Alert, Normal Mood/Affect, Normal Response , Motor Strength 5/5 Moderate Sedation - Procedure Monitoring Vital Signs: Procedure Monitoring Vital Signs Temperature 98.2 F 08/29/18 21:57 Pulse Rate 105 H 08/29/18 21:57 Respiratory Rate 20 08/29/18 21:57 Blood Pressure 134/76 08/29/18 21:57 O2 Sat by Pulse Oximetry (%) 110 H 08/29/18 21:57 *DC/Admit/Observation/Transfer Diagnosis at time of Disposition: Nasal congestion related to , Cough - Discharge Dispostion Disposition: HOME Condition at time of disposition: Good - Referrals Referrals: Maile De Dios [Primary Care Provider] - - Patient Instructions Printed Discharge Instructions: Medications and Additional Instructions: use saline spray to help with congestion use a cool mist humidifier in the sleeping area avoid any over the counter medications as you are 5 weeks decaf tea with honey and lemon follow with your CH[facility] DRILLER for follow up and further care - Post Discharge Activity
== END 2018-08-29 22:50 | disposition home or self-care (01) ==
LOC: JERFT 21:45
DX: O26.891 Other specified pregnancy related conditions, first trimester (principal); R09.81 Nasal congestion; Z3A.01 Less than 8 weeks gestation of pregnancy
CPT/HCPCS: 99281-25

== ENCOUNTER 2018-11-04 15:46 | Emergency (ER) | payer OTHER ==
[2018-11-04 16:08] VITALS: BP 126/73; PULSE 99; TEMP 98.5; BMI 44.6
--- NOTE | 2018-11-04 16:10 | PDOC ---
Rapid Medical Evaluation Chief Complaint: Sore Throat Medical Evaluation: Allergies Allergy/AdvReac Type Severity Reaction Status Date / Time shellfish derived Allergy Verified 08/29/18 21:57 sea food Allergy Uncoded 08/29/18 21:57 11/04/18 16:05 Pt presents to the ED for sore throat since yesterday Exam: Afebrile, NAD Orders: Rapid strep Pt to proceed to ED for further evaluation Discharge Disposition - Diagnosis Sore throat - Referrals - Patient Instructions - Post Discharge Activity
--- NOTE | 2018-11-04 16:45 | PDOC ---
History of Present Illness - General Chief Complaint: Sore Throat Stated Complaint: SORE THROAT Time Seen by Provider: 11/04/18 16:26 - History of Present Illness Initial Comments: 11/04/18 16:44 33-year-old female without comorbidities 17 weeks [place] presents for evaluation of sore throat times one day without systemic symptoms. Past History - Past Medical History Allergies/Adverse Reactions: Allergies Allergy/AdvReac Type Severity Reaction Status Date / Time shellfish derived Allergy Verified 11/04/18 16:08 sea food Allergy Uncoded 11/04/18 16:08 Home Medications: Ambulatory Orders NK [No Known Home Medication] 08/29/18 Anemia: Yes (DURING ) Asthma: No Cancer: No Cardiac Disorders: No CVA: No COPD: No CHF: No Dementia: No Diabetes: No GI Disorders: No Disorders: No HTN: No Hypercholesterolemia: No Liver Disease: No Seizures: No Thyroid Disease: No - Surgical History Abdominal Surgery: No Appendectomy: No Cardiac Surgery: No Cholecystectomy: No Lung Surgery: No Neurologic Surgery: No Orthopedic Surgery: No - Immunization History Td Vaccination: Yes Immunization Up to Date: Yes - Suicide/Smoking/Psychosocial Hx Smoking Status: No Smoking History: Never smoked Have you smoked in the past 12 months: No Number of Cigarettes Smoked Daily: 0 Cigars Per Day: 0 Information on smoking cessation initiated: No Hx Alcohol Use: No Drug/Substance Use Hx: No Substance Use Type: None Hx Substance Use Treatment: No Review of Systems - Review of Systems Constitutional: No: Fever HEENTM: Yes: Throat Pain *Physical Exam - Vital Signs Last Vital Signs Temp Pulse Resp BP Pulse Ox 98.5 F 99 H 16 126/73 100 11/04/18 16:05 11/04/18 16:05 11/04/18 16:05 11/04/18 16:05 11/04/18 16:05 - Physical Exam Comments: 11/04/18 16:45 HEAD: NC/AT EYES: Conjuntiva clear Ears: Canals and TM's normal NOSE: No d/c THROAT: Moist mucous membrances, oral pharanx erythematous with exudate, uvula midline NECK: Supple without adenopathy CARDIAC: S1 S2 LUNGS: CTA Full and Equal breath sounds ABDOMEN: Soft NT ND MS: Full ROM in all joints without edema NEUROLOGIC: No gross sensory or motor deficits, NVID SKIN: Normal color and temperature no lesions or rashes Moderate Sedation - Procedure Monitoring Vital Signs: Procedure Monitoring Vital Signs Temperature 98.5 F 11/04/18 16:05 Pulse Rate 99 H 11/04/18 16:05 Respiratory Rate 16 11/04/18 16:05 Blood Pressure 126/73 11/04/18 16:05 O2 Sat by Pulse Oximetry (%) 100 11/04/18 16:05 Medical Decision Making - Medical Decision Making 11/04/18 17:12 Although rapid strep is negative history and examination consistent with strep throat. Patient is 17 weeks I will treat her for strep with Bicillin I recommend use of Tylenol discussed no Advil Motrin or other NSAIDs. Follow-up with PCP *DC/Admit/Observation/Transfer Diagnosis at time of Disposition: Sore throat, Strep pharyngitis - Discharge Dispostion Disposition: HOME Condition at time of disposition: Stable Decision to Admit order: No - Referrals Referrals: Sarbjit De Dios MD [Primary Care Provider] - - Patient Instructions Printed Discharge Instructions: Strep Throat, DI for Strep Throat Additional Instructions: You were treated in the emergency room for strep throat. With one single shot of penicillin. Return to the emergency room should her symptoms go unresolved. Tylenol only for pain and fever as directed. Follow-up with your primary care provider as well as your slip dumper in one to 2 days for further evaluation and treatment options. Warm salt water gargles 5-6 times a day will help with your throat pain. - Post Discharge Activity
[2018-11-04] MEDS ORDERED: ACETAMINOPHEN 500 MG TABLET (FP) PO ONE (17:04)
[2018-11-04] MEDS ORDERED: PENICILLIN G BENZATHINE 1,200,000 UNIT/2 ML PFS IM ONE (17:04)
[2018-11-04] MEDS ORDERED: ACETAMINOPHEN 500 MG TABLET (FP) ONE (17:06)
[2018-11-04] MEDS ORDERED: PENICILLIN G BENZATHINE 2,400,000 UNIT/4 ML PFS ONE (17:08)
== END 2018-11-04 17:44 | disposition home or self-care (01) ==
LOC: JERFT 15:46
DX: O26.892 Other specified pregnancy related conditions, second trimester (principal); O98.812 Other maternal infectious and parasitic diseases complicating pregnancy, second trimester; J02.0 Streptococcal pharyngitis; B95.5 Unspecified streptococcus as the cause of diseases classified elsewhere; Z3A.17 17 weeks gestation of pregnancy
CPT/HCPCS: 87070; 87880; 96372; 99281-25

== ENCOUNTER 2019-02-05 16:01 | Emergency (ER) | payer OTHER ==
[2019-02-05 16:15] VITALS: BP 125/69; PULSE 102; BMI 46.3
--- NOTE | 2019-02-05 16:16 | PDOC ---
Rapid Medical Evaluation Chief Complaint: Pain, Acute Time Seen by Provider: 02/05/19 16:11 Medical Evaluation: Allergies Allergy/AdvReac Type Severity Reaction Status Date / Time shellfish derived Allergy Verified 02/03/19 00:41 sea food Allergy Uncoded 02/03/19 00:41 02/05/19 16:13 I have performed a brief in-person evaluation of this patient. The patient presents with a chief complaint of: 31WKS present with complains persistent constipation for 5 days. Patient report unable to have any BM for 5 days which she took OTC medication to help go to bathroom but now have ramping lower abdominal since last and took prune juice which is causing her to have cramping abdominal pains Pertinent physical exam findings: A&O x 3. in NAD I have ordered the following:nothing The patient will proceed to the labor floor for further evaluation. Discharge Disposition - Diagnosis Constipation Qualifiers: Constipation type: chronic idiopathic constipation Qualified Code(s): K59.04 - Chronic idiopathic constipation - Discharge Dispostion Condition at time of disposition: Stable - Referrals - Patient Instructions - Post Discharge Activity
[2019-02-05 16:37] VITALS: TEMP 98.4
== END 2019-02-05 17:55 | disposition home or self-care (01) ==
LOC: JER 16:01
DX: O26.893 Other specified pregnancy related conditions, third trimester (principal); K59.04 Chronic idiopathic constipation; Z3A.31 31 weeks gestation of pregnancy
CPT/HCPCS: 99281-25

== ENCOUNTER 2019-03-30 07:00 | Inpatient (IN) | payer OTHER ==
[2019-03-30] MEDS ORDERED: ELECTROLYTE-148 SOLN 500 ML IV ONE (07:42)
[2019-03-30] MEDS ORDERED: CITRIC ACID/SODIUM CITRATE 30 ML UNIT-DOSE CUP PO ONE (07:42)
[2019-03-30] MEDS: ELECTROLYTE-148 SOLN 1,000 ML IV SCH (07:45)
--- NOTE | 2019-03-30 07:58 | HP ---
Past Medical History - Admission Chief Complaint: Scheduled RLTCS History of Present Illness: 34yo @ 39wks here for scheduled RLTCS. No VB/LOF. +FM Preg c/b prior C/S, obesity History Source: Patient Limitations to Obtaining History: Language Barrier - Past Medical History TELLER HEAD: No: Alzheimer's, CVA, Dementia, Migraine, Multiple Sclerosis, Peripheral Neuropathy, Parkinson's, Seizure, Syncope, TIA, Vertigo, Other Hepatobiliary: No: Cirrhosis, Cholelithiasis, Cholecystitis, Choledocholithiasis , Hepatitis A, Hepatitis B, Hepatitis C, Other Renal/: No: Renal Failure, Renal Inusuff, BPH, Cancer, Hematuria, Hemodialysis , Neurogenic Bladder, Renal Calculi, UTI, Other Reproductive: No: Ectopic , Endometriosis, Fibroids, PID, Polycystic Ovary Syndrome, Postmenopausal, Other ...: 2 ...Para: 1 ...Term: 1 ... Weeks Gestation by Dates: 39.0 ...EDC by Dates: 04/06/19 ...EDC by Sono: 04/06/19 Heme/Onc: No: Anemia, B12 Deficiency, Bleeding Disorder, Cancer, Current Chemotherapy, Current Radiation Therapy, Hemochromatosis, Hypercoaguable State, Myeloproliferative Synd, Sickle Cell Disease, Sickle Cell Trait, Thrombocytopenia, Other Infectious Disease: No: AIDS, C-Diff, Herpes Zoster, HIV, MRSA, STD's, Tuberculosis, VREF, Other Psych: No: Addictions, Anxiety, Bipolar, Depression, Panic, Psychosis, Schizophrenia, Other Musculoskeletal: No: Bursitis, Chronic low back pain, Hemiparesis, Hemiplegia, Osteoarthritis, Paraplegia, Other Rheumatology: No: Fibromyalgia, Gout, Lupus, Rheumatoid Arthritis, Sarcoidosis, Vasculitis, Other ENT: No: Allergic Rhinitis, Sinusitis, Other - Past Surgical History Past Surgical History: Yes: Hx Myomectomy: No Hx Transabdominal Cerclage: No - Smoking History Smoking history: Never smoked Have you smoked in the past 12 months: No Aproximately how many cigarettes per day: 0 - Alcohol/Substance Use Hx Alcohol Use: No History of Substance Use: reports: None - Social History Usual Living Arrangement: Yes: With Spouse ADL: Independent History of Recent Travel: No Home Medications - Allergies Allergies/Adverse Reactions: Allergies Allergy/AdvReac Type Severity Reaction Status Date / Time shellfish derived Allergy Rash Verified 03/30/19 07:33 sea food Allergy Rash Uncoded 03/30/19 07:33 - Home Medications Home Medications: Ambulatory Orders Vitamins (Sjr) - 1 tab PO DAILY 11/24/18 Ferrous Sulfate [Feosol] 1 tab PO DAILY 03/30/19 Physical Exam - Maternity Constitutional: Yes: Well Nourished, No Distress, Calm Eyes: Yes: WNL, Conjunctiva Clear, EOM Intact HENT: Yes: WNL, Atraumatic, Normocephalic Neck: Yes: WNL, Supple, Trachea Midline Cardiovascular: Yes: WNL, Regular Rate and Rhythm Breast(s): Yes: WNL Assessment/Plan 34yo @ 39wks here for scheduled RLTCS Admit to L&D NPO, IVFs Ancef Cat I tracing Risk of procedure including bleeding, infection, injury to bladder/bowel/adnexa/ vessels/nerves reviewed. Consents signed. Proceed to OR. Otoniel Ospina MD
[2019-03-30 08:01] VITALS: BMI 47.0
[2019-03-30] MEDS ORDERED: PHENYLEPHRINE HCL 10 MG/1 ML SINGLE DOSE VIAL ONE (09:21)
[2019-03-30] MEDS ORDERED: morphine SULFATE/PF 0.5 MG/ML (2cc Syringe - QUVA) ONE (09:22)
[2019-03-30] MEDS ORDERED: IBUPROFEN 600 MG TABLET (FP) PO PRN (09:47)
[2019-03-30] MEDS ORDERED: ONDANSETRON 4 MG/2 ML VIAL IVPUSH PRN (09:47)
[2019-03-30] MEDS ORDERED: ceFAZolin SODIUM 1 GM VIAL ONE ×2 (09:50)
[2019-03-30] MEDS ORDERED: OXYTOCIN 10 UNITS/ML VIAL ONE ×4 (10:18)
--- NOTE | 2019-03-30 10:43 | PN ---
Progress Note (short form) - Note Progress Note: Pt comfortable Cervix long/1-2/-3 Linn bulb placed, pitocin started FS 117 Otoniel Ospina MD
--- NOTE | 2019-03-30 10:45 | OP ---
Operative Note - Note: Operative Date: 03/30/19 Pre-Operative Diagnosis: Prior , desires elective Repeat Operation: Repeat Low Transverse Findings: VMI, LULU position. No nuchal. No meconium. Apgars 9/9, weight pending. Normal tubes and ovaries bilaterally. Post-Operative Diagnosis: Same as Pre-op Surgeon: Hilaria Ospina Feather Separator: Mervin Kimble Anesthesiologist/FAMILY AND CONSUMER SCIENCES PROFESSOR: Daniel Palmer Anesthesia: Spinal Estimated Blood Loss (mls): 600 Drains, Volume Out (mls): 200 (clear urine) Operative Report Dictated: Yes
[2019-03-30] MEDS ORDERED: METHYLERGONOVINE MALEATE 0.2 MG/1 ML AMP IM PRN (11:30)
[2019-03-30] MEDS: IBUPROFEN 800 MG/8 ML IJ IVPB PRN ×2 (11:35→21:57)
--- NOTE | 2019-03-30 14:42 | OP ---
DATE OF OPERATION: 03/30/2019 PREOPERATIVE DIAGNOSIS: Prior section 39-week , desires elective repeat section. POSTOPERATIVE DIAGNOSIS: Prior section 39-week , desires elective repeat section. PROCEDURE: Repeat low transverse section. ANESTHESIA: Spinal. SURGEON: Hilaria Ospina MD SAMPLE BOX MAKER: Mervin Kimble MD ESTIMATED BLOOD LOSS: 600. IV FLUIDS: Per anesthesia record. URINE OUTPUT: 200 mL of clear urine at the end of the procedure. FINDINGS: Viable male , LULU position. No nuchal. No meconium. Apgars 9 , 9. Weight pending. Normal tubes and ovaries bilaterally. COMPLICATIONS: None. CONDITION: Stable to recovery room. NATURE OF THE PROCEDURE FOLLOWS: After the appropriate consents were signed , the patient was taken to the operating room. Spinal anesthesia was administered. The abdomen was prepped and draped in a normal sterile fashion. A sterile Linn catheter had been inserted prior to entering the operating room. A time-out was performed confirming the correct patient and procedure. A Pfannenstiel incision was made through the prior incision and carried through to the underlying layers until the fascia was nicked in the midline. Fascia was then extended laterally with the Muñiz scissors and noted to be adherent to the rectus muscles with scarring on the posterior aspect of the fascia down to the patient's pubic bone. The inferior aspect of the fascia was grasped with the Raven clamps, tented upwards; however, on the inferior aspect of the fascia, there were thick adhesions to the pelvic bone, so the Raven clamps were removed. Attention was then paid to the superior aspect of the fascia, which was then grasped, tented upwards, and the rectus muscles were dissected off bluntly. The peritoneum was entered after it was grasped with 2 hemostats, tented upwards, transilluminated with the Metzenbaum scissors, and then entered with the Metzenbaum scissors and extended manually. Bladder blade was then inserted. The patient's lower uterine segment was noted to be thin. No bladder flap was created. The uterus was incised in a low transverse fashion. Clear amniotic fluid was noted. The hysterotomy was extended manually. The 's head was delivered with the assistance of a vacuum as it was floating, one pop off occured. Two pulls were needed to deliver the infant's head. The shoulder's were delivered without difficulty. The cord was clamped and cut. The was handed off to the awaiting pediatric staff. The uterus was then cleared manually out of the placenta and then cleared again of all clot and debris. The hysterectomy was closed in 2 layers, the 1st with a 0 Vicryl, the 2nd layer with a 1-0 Vicryl. Good hemostasis was noted. The adnexa were then inspected. The gutters were cleared. Given the adhesions with the rectus muscles, they were not closed. Attention was then paid to the fascia, which was then closed with a 0 Vicryl, which at times was difficult to identify inferiorly because of dense adhesions and strictures to the lower pelvic bone. The subcutaneous tissue was then closed with a 3-0 plain. The skin was closed with a 3-0 Vicryl. All sponge, lap, needle counts were correct x3. The patient was given 2 g of Ancef at the start of the procedure. She was taken from the operating room to the recovery area in stable condition. HILARIA OSPINA MD [id number] MTDD
[2019-03-30] MEDS: ACETAMINOPHEN 325 MG TABLET (FP) PO PRN (15:45)
[2019-03-31] MEDS: IBUPROFEN 600 MG TABLET (FP) PO PRN ×4 (05:42→21:05)
[2019-03-31] MEDS: ACETAMINOPHEN 325 MG TABLET (FP) PO PRN ×2 (05:43→21:06)
[2019-03-31] MEDS: SIMETHICONE 80 MG TAB.CHEW (FP) PO PRN ×3 (05:43→13:02)
[2019-03-31 07:47] LABS: BASO % 0.5 % (0-2.0); EOS % 2.2 % (0-4.5); HEMATOCRIT 27.4 % (32.4-45.2); HEMOGLOBIN 9.2 GM/dL (10.7-15.3); LYMPH % 13.2 % (8-40); MCH 26.4 pg (25.7-33.7); MCHC 33.6 g/dl (32.0-36.0); MEAN CELL VOLUME 78.5 fl (80-96); MEAN PLT VOLUME 8.8 fl (7.5-11.1); MONO % 10.7 % (3.8-10.2); NEUT % 73.4 % (42.8-82.8); PLATELET COUNT 170 K/MM3 (134-434); RBC 3.49 M/mm3 (3.60-5.2); RDW 16.7 % (11.6-15.6); WHITE BLOOD COUNT 9.6 K/mm3 (4.0-10.0)
[2019-03-31] MEDS: oxyCODONE HCL 5 MG TABLET PO PRN ×2 (08:21→13:01)
--- NOTE | 2019-03-31 09:13 | PN ---
Post Progress Note - Subjective Subjective: 34 yo Para 2 status post repeat , seen and evaluated. Doing well. Post Day: 1 Type of Delivery: Repeat C/S Vital Signs: Vital Signs Temperature 98.3 F 03/31/19 05:46 Pulse Rate 99 H 03/31/19 05:46 Respiratory Rate 18 03/31/19 08:00 Blood Pressure 120/70 03/31/19 05:46 O2 Sat by Pulse Oximetry (%) 98 03/30/19 21:00 Breast Exam: Yes: Soft Uterus: Yes: Fundus Firm Incision: Yes: Dressing dry and intact Abdomen/GI: Yes: Abdomen soft, Tolerating PO Lochia: Yes: Rubra Lochia, amount: Small Extremities: Yes: Calves non-tender Perineum: Yes: Intact Activity: Ambulating - Labs Labs: CBC WBC 9.6 K/mm3 (4.0-10.0) 03/31/19 07:04 RBC 3.49 M/mm3 (3.60-5.2) L 03/31/19 07:04 Hgb 9.2 GM/dL (10.7-15.3) L 03/31/19 07:04 Hct 27.4 % (32.4-45.2) L 03/31/19 07:04 MCV 78.5 fl (80-96) L 03/31/19 07:04 MCH 26.4 pg (25.7-33.7) 03/31/19 07:04 MCHC 33.6 g/dl (32.0-36.0) 03/31/19 07:04 RDW 16.7 % (11.6-15.6) H 03/31/19 07:04 Plt Count 170 K/MM3 (134-434) D 03/31/19 07:04 MPV 8.8 fl (7.5-11.1) 03/31/19 07:04 Absolute Neuts (auto) 7.0 K/mm3 (1.5-8.0) 03/31/19 07:04 Neutrophils % 73.4 % (42.8-82.8) D 03/31/19 07:04 Lymphocytes % 13.2 % (8-40) D 03/31/19 07:04 Monocytes % 10.7 % (3.8-10.2) H 03/31/19 07:04 Eosinophils % 2.2 % (0-4.5) 03/31/19 07:04 Basophils % 0.5 % (0-2.0) 03/31/19 07:04 Nucleated RBC % 0 % (0-0) 03/31/19 07:04 Problem List - Problems (1) Status post repeat low transverse section Code(s): Z98.891 - HISTORY OF UTERINE SCAR FROM PREVIOUS SURGERY Assessment/Plan Status post repeat Ambulation Analgesia as needed Continue routine post op care
[2019-03-31] MEDS ORDERED: DIPHTH,PERTUSS(ACELL),TET 0.5 ML DISP.SYRIN IM ONE (10:00)
[2019-03-31] MEDS ORDERED: BISACODYL 10 MG SUPP.RECT RC PRN (11:30)
[2019-03-31] MEDS: ELECTROLYTE-148 SOLN 1,000 ML IV SCH (16:07)
[2019-03-31] MEDS: OXYTOCIN 20 UNITS in 0.9% NS 20 UNIT/1,000 ML INFUS.BAG IV SCH (17:26)
[2019-04-01] MEDS: IBUPROFEN 600 MG TABLET (FP) PO PRN ×3 (06:01→20:24)
--- NOTE | 2019-04-01 06:01 | PN ---
Post Progress Note Post Day: 2 Type of Delivery: Repeat C/S Vital Signs: Vital Signs Temperature 97.9 F 03/31/19 22:00 Pulse Rate 106 H 03/31/19 22:00 Respiratory Rate 18 03/31/19 22:00 Blood Pressure 111/78 03/31/19 22:00 O2 Sat by Pulse Oximetry (%) 98 03/30/19 21:00 Uterus: Yes: Fundus Firm, Fundus @ umbilicus Incision: Yes: Dressing dry and intact, Sutures intact Abdomen/GI: Yes: Abdomen soft, Passing flatus, Tolerating PO Lochia: Yes: Rubra Lochia, amount: Small Extremities: Yes: Calves non-tender Perineum: Yes: Intact Activity: Ambulating - Labs Labs: CBC WBC 9.6 K/mm3 (4.0-10.0) 03/31/19 07:04 RBC 3.49 M/mm3 (3.60-5.2) L 03/31/19 07:04 Hgb 9.2 GM/dL (10.7-15.3) L 03/31/19 07:04 Hct 27.4 % (32.4-45.2) L 03/31/19 07:04 MCV 78.5 fl (80-96) L 03/31/19 07:04 MCH 26.4 pg (25.7-33.7) 03/31/19 07:04 MCHC 33.6 g/dl (32.0-36.0) 03/31/19 07:04 RDW 16.7 % (11.6-15.6) H 03/31/19 07:04 Plt Count 170 K/MM3 (134-434) D 03/31/19 07:04 MPV 8.8 fl (7.5-11.1) 03/31/19 07:04 Absolute Neuts (auto) 7.0 K/mm3 (1.5-8.0) 03/31/19 07:04 Neutrophils % 73.4 % (42.8-82.8) D 03/31/19 07:04 Lymphocytes % 13.2 % (8-40) D 03/31/19 07:04 Monocytes % 10.7 % (3.8-10.2) H 03/31/19 07:04 Eosinophils % 2.2 % (0-4.5) 03/31/19 07:04 Basophils % 0.5 % (0-2.0) 03/31/19 07:04 Nucleated RBC % 0 % (0-0) 03/31/19 07:04 Assessment/Plan 34yo s/p RLTCS, POD#2 Routine PP care Labs reviewed Po pain control D/c to home POD#3 Otoniel Ospina MD
[2019-04-01] MEDS: ACETAMINOPHEN 325 MG TABLET (FP) PO PRN ×3 (06:02→20:25)
--- NOTE | 2019-04-01 10:52 | PN ---
Progress Note (short form) - Note Progress Note: Post op day#2.S/P C Section under spinal anesthesia with duramorph uneventful.Patient stable and has little pain for which she is on medication.No any anesthesia related problem.Patient Dc from the anesthesia care.
[2019-04-01] MEDS: ELECTROLYTE-148 SOLN 1,000 ML IV SCH (11:38)
[2019-04-01] MEDS: OXYTOCIN 20 UNITS in 0.9% NS 20 UNIT/1,000 ML INFUS.BAG IV SCH (13:45)
[2019-04-01] MEDS: SIMETHICONE 80 MG TAB.CHEW (FP) PO PRN ×2 (13:52→20:24)
[2019-04-01 22:23] VITALS: PULSE 91
[2019-04-02] MEDS: IBUPROFEN 600 MG TABLET (FP) PO PRN ×2 (05:33→12:29)
[2019-04-02] MEDS: ACETAMINOPHEN 325 MG TABLET (FP) PO PRN (05:34)
--- NOTE | 2019-04-02 07:48 | PN ---
Post Progress Note - Subjective Subjective: Ambulating, tolerating Po, lochia decreased, breast feeding, PP/post-op precautions discussed. Type of Delivery: Repeat C/S Vital Signs: Vital Signs Temperature 98.2 F 04/01/19 22:00 Pulse Rate 91 H 04/01/19 22:00 Respiratory Rate 18 04/01/19 22:00 Blood Pressure 116/76 04/01/19 22:00 O2 Sat by Pulse Oximetry (%) 98 03/30/19 21:00 Breast Exam: Yes: Other (deferred) Uterus: Yes: Fundus Firm Incision: Yes: Dressing dry and intact, Sutures intact Abdomen/GI: Yes: Abdomen soft (obese) Lochia, amount: Moderate Extremities: Yes: Calves non-tender Activity: Ambulating - Labs Labs: CBC WBC 9.6 K/mm3 (4.0-10.0) 03/31/19 07:04 RBC 3.49 M/mm3 (3.60-5.2) L 03/31/19 07:04 Hgb 9.2 GM/dL (10.7-15.3) L 03/31/19 07:04 Hct 27.4 % (32.4-45.2) L 03/31/19 07:04 MCV 78.5 fl (80-96) L 03/31/19 07:04 MCH 26.4 pg (25.7-33.7) 03/31/19 07:04 MCHC 33.6 g/dl (32.0-36.0) 03/31/19 07:04 RDW 16.7 % (11.6-15.6) H 03/31/19 07:04 Plt Count 170 K/MM3 (134-434) D 03/31/19 07:04 MPV 8.8 fl (7.5-11.1) 03/31/19 07:04 Absolute Neuts (auto) 7.0 K/mm3 (1.5-8.0) 03/31/19 07:04 Neutrophils % 73.4 % (42.8-82.8) D 03/31/19 07:04 Lymphocytes % 13.2 % (8-40) D 03/31/19 07:04 Monocytes % 10.7 % (3.8-10.2) H 03/31/19 07:04 Eosinophils % 2.2 % (0-4.5) 03/31/19 07:04 Basophils % 0.5 % (0-2.0) 03/31/19 07:04 Nucleated RBC % 0 % (0-0) 03/31/19 07:04 Problem List - Problems (1) 39 weeks gestation of Code(s): Z3A.39 - 39 WEEKS GESTATION OF Assessment/Plan PPD/post-op day # 3 /P RCS in stable condition. -D/C home
--- NOTE | 2019-04-02 07:50 | DS ---
Physical Examination Vital Signs: Vital Signs Temperature 98.2 F 04/01/19 22:00 Pulse Rate 91 H 04/01/19 22:00 Respiratory Rate 18 04/01/19 22:00 Blood Pressure 116/76 04/01/19 22:00 O2 Sat by Pulse Oximetry (%) 98 03/30/19 21:00 Findings/Remarks: adequate recovery Constitutional: Yes: Well Nourished HENT: Yes: Atraumatic, Normocephalic Neck: Yes: Supple Cardiovascular: Yes: Regular Rate and Rhythm Respiratory: Yes: Regular Gastrointestinal: Yes: Soft ...Rectal Exam: Yes: Deferred Renal/: Yes: WNL Breast(s): Yes: Other (deferred) Extremities: Yes: WNL Edema: Yes Edema: LLE: Trace, RLE: Trace Integumentary: Yes: WNL Wound/Incision: Yes: Clean/Dry, Well Approximated, Sutures Intact Neurological: Yes: Alert, Oriented ...Motor Strength: WNL Psychiatric: Yes: Alert, Oriented Labs: reviewed Discharge Summary Reason For Visit: C SECTION Current Active Problems Status post repeat low transverse section (Acute) Hospital Course: uncomplicated Condition: Stable - Instructions Diet, Activity, Other Instructions: Regular Diet Follow up in 04/[address] Ospina for an incision check Referrals: Hilaria Ospina MD [Staff Physician] - Disposition: HOME - Home Medications Comprehensive Discharge Medication List: Ambulatory Orders Vitamins (Sjr) - 1 tab PO DAILY 11/24/18 Ferrous Sulfate [Feosol] 1 tab PO DAILY 03/30/19 Ibuprofen 600 mg PO Q6H PRN #30 tablet 04/01/19 Oxycodone HCl/Acetaminophen [Percocet 5-325 mg Tablet -] 1 - 2 tab PO Q6H PRN # 20 tab MDD 4 04/01/19
[2019-04-02 09:38] LABS: BASO % 0.5 % (0-2.0); EOS % 4.5 % (0-4.5); HEMATOCRIT 26.7 % (32.4-45.2); HEMOGLOBIN 8.8 GM/dL (10.7-15.3); LYMPH % 20.3 % (8-40); MCH 26.4 pg (25.7-33.7); MONO % 10.4 % (3.8-10.2); NEUT % 64.3 % (42.8-82.8); PLATELET COUNT 200 K/MM3 (134-434); RBC 3.34 M/mm3 (3.60-5.2); RDW 17.4 % (11.6-15.6); WHITE BLOOD COUNT 8.3 K/mm3 (4.0-10.0)
[2019-04-02 12:17] VITALS: BP 126/72; TEMP 98.3
--- NOTE | 2019-04-03 16:30 | PATH ---
Surgical Pathology Report Patient Name: CRISTAL NUR Med. Rec. 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 Electronically Signed Patricia Kirkland M.D. Gross Description The specimen is received fresh labeled placenta and is a 458 gram, 15.0 x 12.5 x 3.0 cm. placenta with attached membranes and umbilical cord. The attached membranes are seaman, translucent with focal opacities and insert marginally. The umbilical cord measures 45 cm. in length and averages 1 cm. in diameter. The cord inserts eccentrically, 3 cm. to the nearest margin. No true knots or strictures are identified. Cut surface of the umbilical cord reveals 3 vessels. The surface is raza-blue with minimal fibrin deposition and appropriate caliber vessels. The maternal surface is red-brown with focal defects. Sectioning reveals a 1.6 cm in greatest dimension hemorrhagic intraparenchymal lesion. The remaining placental parenchyma is red-brown and spongy. Director Of Retail Marketing sections are submitted in three cassettes as follows: 1-membrane roll and umbilical cord; 2-lesion; [id number] section of placenta. /04/01/2019 [facility]04/01/2019
== END 2019-04-02 13:20 | disposition home or self-care (01) | DRG 540 ==
LOC: JLDR 07:00 → J3W 12:05
PROVIDERS: ADMIT Obstetrics & Gynecology; ATTEND Obstetrics & Gynecology
PROC: 10D00Z1 Extraction of Products of Conception, Low, Open Approach (ICD-10-PCS; principal; 2019-03-30)
DX: O34.211 Maternal care for low transverse scar from previous cesarean delivery (principal); N85.8 Other specified noninflammatory disorders of uterus; O99.214 Obesity complicating childbirth; Z3A.39 39 weeks gestation of pregnancy; Z37.0 Single live birth
CPT/HCPCS: 36415; 85025; 88307-TC; 90715

== ENCOUNTER 2019-04-15 15:33 | Emergency (ER) | payer OTHER ==
[2019-04-15 15:47] VITALS: BMI 44.6
--- NOTE | 2019-04-15 16:59 | PDOC ---
History of Present Illness - General Chief Complaint: Lightheaded Stated Complaint: HEADACHE Time Seen by Provider: 04/15/19 16:12 - History of Present Illness Initial Comments: 04/15/19 16:54 CHIEF COMPLAINT: weakness, vaginal bleeding HISTORY OF PRESENT ILLNESS: 34 yo F no significant PMH, s/p 16 days ago presents to ED with R sided headache since yesterday. Patient reports that she saw her OB yesterday for f/u and was given Lasix for swelling and pain to left foot. She reports she is concerned because she took the medicine this morning around noon and one hour later started "feeling bad and dizzy, and I started having some blood down there, and when I try to swallow but it feels weird, kind of like when I have my allergy to seafood." Denies rash. Patient reports that she took ibuprofen yesterday with relief but today it did not help her. Patient denies any calf tenderness or pain, denies any fever, nausea, vomiting, diarrhea. Patient is currently taking Keflex and ibuprofen given to her by OB. No recent travel or sick contacts. PAST MEDICAL HISTORY: Denies past medical history FAMILY HISTORY: Denies SOCIAL HISTORY: Denies tobacco, alcohol, illicit drug use. SURGICAL HISTORY: Denies ALLERGIES: seafood REVIEW OF SYSTEMS General/Constitutional: Denies fever or chills. Denies weakness, weight change. HEENT: Denies change in vision. Denies ear pain or discharge. Denies sore throat. Cardiovascular: Denies chest pain or shortness of breath. Respiratory: Denies cough, wheezing, or hemoptysis. Gastrointestinal: Denies nausea, vomiting, diarrhea or constipation. Denies rectal bleeding. Genitourinary: Vaginal bleeding starting this afternoon. Denies dysuria, frequency, or change in urination. Musculoskeletal: Denies joint or muscle swelling or pain. Denies neck or back pain. Skin and breasts: Denies rash or easy bruising. Neurologic: Headache since yesterday. Vertigo, loss of consciousness, or loss of sensation. PHYSICAL EXAM General Appearance: Well-appearing, appropriately dressed. No apparent distress , no intoxication. HEENT: EOMI, PERRLA, normal ENT inspection, normal voice, TMs normal, pharynx normal. No conjunctival pallor. No photophobia, scleral icterus. Neck: Supple. Trachea midline. No tenderness, rigidity, carotid bruit, stridor , lymphadenopathy, or thyromegaly. Respiratory/Chest: Lungs CTAB. No shortness of breath, chest tenderness, respiratory distress, accessory muscle use. No crackles, rales, rhonchi, stridor , wheezing, dullness Cardiovascular: RRR. S1, S2. No JVD, murmur, bradycardia, tachycardia. Vascular Pulses: Dorsalis-Pedis (R): 2+, Dorsalis-Pedis (L): 2+ Gastrointestinal/Abdominal: Normal bowel sounds. Abdomen soft, non-distended. No tenderness or rebound tenderness. No organomegaly, pulsatile mass, guarding , hernia, hepatomegaly, splenomegaly. Lymphatic: No adenopathy, tenderness. Musculoskeletal/Extremities: Normal inspection. FROM of all extremities, normal capillary refill. Pelvis Stable. No CVA tenderness. No tenderness to extremities, pedal edema, swelling, erythema or deformity. Integumentary: Appropriate color, dry, warm. No cyanosis, erythema, jaundice or rash Neurologic: tower hand II-XII intact. Fully oriented, alert. Appropriate mood/affect. Motor strength 5/5. No appreciable EOM palsy, facial droop or sensory deficit. Past History - Past Medical History Allergies/Adverse Reactions: Allergies Allergy/AdvReac Type Severity Reaction Status Date / Time shellfish derived Allergy Rash Verified 03/30/19 07:33 sea food Allergy Rash Uncoded 03/30/19 07:33 Home Medications: Ambulatory Orders Ferrous Sulfate [Feosol] 1 tab PO DAILY 03/30/19 Anemia: Yes (DURING ) Asthma: No Cancer: No Cardiac Disorders: No CVA: No COPD: No CHF: No Dementia: No Diabetes: No GI Disorders: No Disorders: No HTN: No Hypercholesterolemia: No Liver Disease: No Seizures: No Thyroid Disease: No - Surgical History Abdominal Surgery: No Appendectomy: No Cardiac Surgery: No Cholecystectomy: No Lung Surgery: No Neurologic Surgery: No Orthopedic Surgery: No - Immunization History Td Vaccination: Yes Immunization Up to Date: Yes - Suicide/Smoking/Psychosocial Hx Smoking Status: No Smoking History: Never smoked Have you smoked in the past 12 months: No Number of Cigarettes Smoked Daily: 0 Cigars Per Day: 0 Information on smoking cessation initiated: No Hx Alcohol Use: No Drug/Substance Use Hx: No Substance Use Type: None Hx Substance Use Treatment: No *Physical Exam - Vital Signs Last Vital Signs Temp Pulse Resp BP Pulse Ox 98.4 F 81 16 120/75 98 04/15/19 15:42 04/15/19 15:42 04/15/19 15:42 04/15/19 15:42 04/15/19 15:42 ED Treatment Course - LABORATORY CBC & Chemistry Diagram: 04/15/19 17:35 04/15/19 17:35 Medical Decision Making - Medical Decision Making 04/15/19 16:59 34 yo F no significant PMH, s/p 16 days ago presents to ED with R sided headache since yesterday. Exam grossly unremarkable, VSS. DDx includes post op complication, allergic reaction, dehydration, menstruation, wound dehiscence. -labs, ekg -UA 04/15/19 18:28 Patient reassessed, states she is "feeling a little better and I need to go home because I'm and my mom says the baby is crying." Labs unremarkable given recent . Patient may f/u with OB on outpatient basis. No pedal edema at this time., advised pt to d/c lasix until f /u with OB. Advised patient to take medication as prescribed and follow up with OB this week. Advised patient of signs and symptoms for return to ED. Patient verbalized understanding and agrees to plan. *DC/Admit/Observation/Transfer Diagnosis at time of Disposition: Drug intolerance - Discharge Dispostion Disposition: HOME Condition at time of disposition: Stable - Referrals Referrals: Sarbjit De Dios MD [Primary Care Provider] - Hilaria Ospina MD [Staff Physician] - - Patient Instructions Printed Discharge Instructions: DI for Adverse Drug Reaction -- Other Additional Instructions: As discussed, please discontinue taking the medication prescribed by Dr. Ospina and follow up with her by the end of this week. If you develop any swelling to your tongue, lips, throat, mouth, or neck, or you develop any fever, chills, nausea, vomiting, or diarrhea, or you develop vaginal bleeding that is more than one soaked pad an hour, please return to the ER immediately. - Post Discharge Activity
[2019-04-15 17:52] LABS: BASO % 1.7 % (0-2.0); HEMATOCRIT 36.1 % (32.4-45.2); HEMOGLOBIN 11.7 GM/dL (10.7-15.3); MCH 25.5 pg (25.7-33.7); MCHC 32.4 g/dl (32.0-36.0); MEAN CELL VOLUME 78.6 fl (80-96); MEAN PLT VOLUME 8.3 fl (7.5-11.1); MONO % 9.4 % (3.8-10.2); NEUT % 38.9 % (42.8-82.8); PLATELET COUNT 349 K/MM3 (134-434); RBC 4.59 M/mm3 (3.60-5.2); RDW 16.6 % (11.6-15.6); WHITE BLOOD COUNT 6.2 K/mm3 (4.0-10.0)
[2019-04-15 17:56] LABS: EPI CELLS 2.9 /HPF (0-5/HPF); HYALINE CASTS 2 /lpf (0-8); PH,URINE 5.5 (5.0-8.0); URINE APPEARANCE CLEAR; URINE BILIRUBIN NEGATIVE (NEGATIVE); URINE COLOR YELLOW; URINE GLUCOSE (UA) NEGATIVE (NEGATIVE); URINE KETONE NEGATIVE (NEGATIVE); URINE LEUK ESTERASE 2+ (NEGATIVE); URINE NITRITE NEGATIVE (NEGATIVE); URINE PROTEIN NEGATIVE (NEGATIVE); URINE RBC 12 /hpf (0-4); URINE UROBILINOGEN 0.2 mg/dL (0.2-1.0); URINE WBC 11 /hpf (0-5)
[2019-04-15 18:12] LABS: ALBUMIN 3.5 g/dl (3.4-5.0); BILIRUBIN,TOTAL 0.2 mg/dL (0.2-1); BLOOD UREA NITROGEN 10.8 mg/dL (7-18); CALCIUM 9.1 mg/dL (8.5-10.1); CREATININE 0.6 mg/dL (0.55-1.3); MAGNESIUM 2.2 mg/dL (1.8-2.4); POTASSIUM 4.5 mmol/L (3.5-5.1); TOT PROT 7.3 g/dl (6.4-8.2)
[2019-04-15] MEDS ORDERED: SODIUM CHLORIDE 0.9% 500 ML INFUS.BAG IV ONE (18:27)
[2019-04-16 06:51] VITALS: BP 122/77; PULSE 80; TEMP 97.9
--- NOTE | 2019-04-16 15:21 | EKG ---
Test Reason : Blood Pressure : / mmHG Vent. Rate : 075 BPM Atrial Rate : 075 BPM P-R Int : 126 ms QRS Dur : 068 ms QT Int : 374 ms P-R-T Axes : 019 008 036 degrees QTc Int : 417 ms POOR DATA QUALITY, INTERPRETATION MAY BE ADVERSELY AFFECTED NORMAL SINUS RHYTHM VOLTAGE CRITERIA FOR LEFT VENTRICULAR HYPERTROPHY ABNORMAL ECG WHEN COMPARED WITH ECG OF 28-JAN-2017 09:24, NO SIGNIFICANT CHANGE WAS FOUND Confirmed by STACIA UREÑA, HIRAM ([id number]) on 04/16/2019 3:21:03 PM Referred By: Confirmed By:HIRAM PALOMO MD
== END 2019-04-15 19:30 | disposition home or self-care (01) ==
LOC: JER 15:33
PROC: 3E0337Z Introduction of Electrolytic and Water Balance Substance into Peripheral Vein, Percutaneous Approach (ICD-10-PCS; principal; 2019-04-15)
DX: T50.905A Adverse effect of unspecified drugs, medicaments and biological substances, initial encounter (principal)
CPT/HCPCS: 36415; 80053; 81003; 83735; 85025; 93005; 93010; 99283-25

== ENCOUNTER 2019-07-06 16:10 | Emergency (ER) | payer OTHER ==
[2019-07-06 16:16] VITALS: BP 127/62; PULSE 95; TEMP 98; BMI 39.4
--- NOTE | 2019-07-06 16:29 | PDOC ---
History of Present Illness - General Chief Complaint: Pain, Acute Stated Complaint: PAIN IN LEGS Time Seen by Provider: 07/06/19 16:18 History Source: Patient - History of Present Illness Initial Comments: 07/06/19 16:33 Chief complaint: Leg pain Patient is a 34-year-old female, 3 months with right leg pain. Patient denies any injury. Patient is not on any contraceptive. Patient has not had any recent travel. No chest pain or shortness of breath. GENERAL/CONSTITUTIONAL: No fever, weakness. dizziness HEAD, EYES, EARS, NOSE AND THROAT: No change in vision. No ear pain or discharge. No sore throat. CARDIOVASCULAR: No chest pain RESPIRATORY: No shortness of breath or cough GASTROINTESTINAL: No pain, nausea, vomiting, diarrhea or constipation GENITOURINARY: No dysuria MUSCULOSKELETAL: No neck or back pain, + right leg SKIN: No rash NEUROLOGIC: No headache, vertigo, loss of consciousness, or loss of sensation. GENERAL: The patient is awake, alert, and fully oriented, in no acute distress. HEAD: Normal with no signs of trauma. EYES: Pupils equal, round and reactive to light, sclera anicteric, conjunctiva clear. ENT: pharynx: no erythema, no exudate, uvula midline NECK: supple CHEST: clear, nontender, rr ABD: soft, nontender BACK: no tenderness or signs of injury EXTREMITIES: Right lower extremity with mild tenderness at the ankle and the dorsum of the foot, no calf pain or swelling, no ecchymosis, no signs of infection, neurovascular intact. Rest of extremities, normal range of motion, no edema. NEUROLOGICAL: Normal speech, normal gait. SKIN: Warm, Dry Past History - Past Medical History Allergies/Adverse Reactions: Allergies Allergy/AdvReac Type Severity Reaction Status Date / Time shellfish derived Allergy Rash Verified 07/06/19 16:16 sea food Allergy Rash Uncoded 07/06/19 16:16 Home Medications: Ambulatory Orders Ferrous Sulfate [Feosol] 1 tab PO DAILY 03/30/19 Anemia: Yes (DURING ) Asthma: No Cancer: No Cardiac Disorders: No CVA: No COPD: No CHF: No Dementia: No Diabetes: No GI Disorders: No Disorders: No HTN: No Hypercholesterolemia: No Liver Disease: No Seizures: No Thyroid Disease: No - Surgical History Abdominal Surgery: No Appendectomy: No Cardiac Surgery: No Cholecystectomy: No Lung Surgery: No Neurologic Surgery: No Orthopedic Surgery: No - Immunization History Td Vaccination: Yes Immunization Up to Date: Yes - Psycho Social/Smoking Cessation Hx Smoking Status: No Smoking History: Never smoked Have you smoked in the past 12 months: No Number of Cigarettes Smoked Daily: 0 Cigars Per Day: 0 Information on smoking cessation initiated: No Hx Alcohol Use: No Drug/Substance Use Hx: No Substance Use Type: None Hx Substance Use Treatment: No *Physical Exam - Vital Signs Last Vital Signs Temp Pulse Resp BP Pulse Ox 98 F 95 H 18 127/62 99 07/06/19 16:13 07/06/19 16:13 07/06/19 16:13 07/06/19 16:13 07/06/19 16:13 Procedures - Splinting Splint Location: Right: Ankle Pre-Proc Neuro Vasc Exam: normal Post-Proc Neuro Vasc Exam: normal Peterson Bandage: 4" Medical Decision Making - Medical Decision Making 07/06/19 16:34 Healthy 34-year-old female with right leg pain, 3 months . No chest pain or shortness of breath. No gross findings, no calf tenderness, has some mild ankle and dorsum of the foot tenderness, no signs of infection. Will get ultrasound of the leg to rule out DVT. Otherwise no further work-up indicated. Ultrasound is negative for DVT, patient will need to follow-up within 1 week, and may be get repeat ultrasound and see orthopedist. Patient given Peterson bandage Discussed issues, findings, results, applicable medications and treatments and follow-up. All these were understood and all questions were answered Discharge - Discharge Information Problems reviewed: Yes Clinical Impression/Diagnosis: Leg pain, right Condition: Stable Disposition: HOME - Admission No - Follow up/Referral Referrals: Maile De Diso [Primary Care Provider] - Romulo Rice MD [Staff Physician] - - Patient Discharge Instructions Additional Instructions: I would check which usually wearing, wear shoes with good support Motrin 600 mg every 6 hours for pain. For complete diagnosis of no blood clot in your leg, you need repeat ultrasound in 1 week. Return to the ER if fever, redness, gross swelling, shortness of breath, chest pain or other concerns. Otherwise follow-up with the orthopedist for further evaluation - Post Discharge Activity
== END 2019-07-06 18:16 | disposition home or self-care (01) ==
LOC: JERFT 16:10
DX: M79.604 Pain in right leg (principal)
CPT/HCPCS: 93971-TC; 99281-25

== ENCOUNTER 2019-09-09 21:36 | Emergency (ER) | payer OTHER ==
[2019-09-09 22:15] VITALS: BP 127/76; PULSE 91; TEMP 98.6; BMI 45.1
--- NOTE | 2019-09-09 22:53 | PDOC ---
History of Present Illness - General Chief Complaint: Chest Pain Stated Complaint: HEADACHE/CHEST PAIN Time Seen by Provider: 09/09/19 22:53 History Source: Patient Exam Limitations: No Limitations - History of Present Illness Initial Comments: Pt is a 34 yo F, with no significant PMH, who is presenting from home with R- sided chest pain and headache. Pt states she has had intermittent R-sided, non- radiating, chest pressure, which started 2 days ago and lasts for a few hours at a time. Pt states her headache started today, is L-sided, gradual in onset, and had no aura. Pt took tylenol, which resolved the pain for a few hours, but then it returned, which prompted her visit to the ER. Pt also endorses significant weight gain since her last . Pt denies any fevers/chills, congestion or rhinorrhea, vision changes, syncope, palpitations, SOB, nausea/ vomiting, abdominal pain, urinary symptoms, diarrhea/constipation, or leg swelling. Allergies: NKDA PCP: Dr. De Dios Social: Pt denies any cigarette, alcohol, or drug use. Pt denies any recent travel or sick contacts. Surgical: , cholecystectomy Family: Father - CVA in 50s 09/10/19 02:58 09/10/19 03:01 Past History - Travel Traveled outside of the country in the last 30 days: No Close contact w/someone who was outside of country & ill: No - Past Medical History Allergies/Adverse Reactions: Allergies Allergy/AdvReac Type Severity Reaction Status Date / Time shellfish derived Allergy Rash Verified 07/06/19 16:16 sea food Allergy Rash Uncoded 07/06/19 16:16 Home Medications: Ambulatory Orders Ferrous Sulfate [Feosol] 1 tab PO DAILY 03/30/19 Cephalexin Monohydrate [Keflex -] 500 mg PO BID #10 capsule 09/10/19 Anemia: Yes (DURING ) Asthma: No Cancer: No Cardiac Disorders: No CVA: No COPD: No CHF: No Dementia: No Diabetes: No GI Disorders: No Disorders: No HTN: No Hypercholesterolemia: No Liver Disease: No Seizures: No Thyroid Disease: No - Surgical History Abdominal Surgery: No Appendectomy: No Cardiac Surgery: No Cholecystectomy: No Lung Surgery: No Neurologic Surgery: No Orthopedic Surgery: No - Immunization History Td Vaccination: Yes Immunization Up to Date: Yes - Psycho Social/Smoking Cessation Hx Smoking Status: No Smoking History: Never smoked Have you smoked in the past 12 months: No Number of Cigarettes Smoked Daily: 0 Cigars Per Day: 0 Information on smoking cessation initiated: No Hx Alcohol Use: No Drug/Substance Use Hx: No Substance Use Type: None Hx Substance Use Treatment: No Cardiac Specific PMH - Complaint Specific PMHX Abdominal Aortic Aneurysm: No Angina: No Cardiac Arrhythmia: No Cardiac Stent: No GERD: No Myocardial Infarction: No Pacemaker: No Pulmonary Embolus: No Valvular Heart Disease: No Peripheral Vascular Disease: No Review of Systems - Review of Systems Able to Perform ROS?: Yes Is the patient limited Thai proficient: No Constitutional: No: Chills, Diaphoresis, Fever, Loss of Appetite, Malaise, Weakness, Weight Stable HEENTM: No: Recent change in vision, Nose Congestion, Throat Pain, Throat Swelling, Difficulty Swallowing Respiratory: No: Cough, Orthopnea, Shortness of Breath Cardiac (ROS): Yes: Chest Pain. No: Edema, Irregular Heart Rate, Lightheadedness, Palpitations, Syncope, Chest Tightness ABD/GI: No: Constipated, Diarrhea, Nausea, Poor Appetite, Poor Fluid Intake, Vomiting : No: Burning, Dysuria, Frequency, Pain, Urgency Musculoskeletal: No: Back Pain, Joint Pain, Muscle Pain, Muscle Weakness Integumentary: No: Bruising, Flushing, Rash Neurological: Yes: Headache. No: Numbness, Paresthesia, Unsteady Gait, Dizziness Psychiatric: No: Sleep Pattern Change, Change in Appetite Endocrine: Yes: Unexplained Weight Gain. No: Flushing, Intolerance to Cold, Intolerance to Heat Hematologic/Lymphatic: No: Anemia, Blood Clots, Easy Bleeding, Easy Bruising All Other Systems: Reviewed and Negative *Physical Exam - Vital Signs Last Vital Signs Temp Pulse Resp BP Pulse Ox 98.6 F 91 H 20 127/76 100 09/09/19 22:06 09/09/19 22:06 09/09/19 22:06 09/09/19 22:06 09/09/19 22:06 - Physical Exam Vitals stable, pt afebrile. Pt in NAD, morbidly obese body habitus. Pt alert and oriented x3. choir director generally intact, muscular strength and sensation intact. No midline spinal tenderness, step-offs, or crepitus. Head normocephalic, atraumatic. Eyes PERRLA, EOMI. Oropharynx without erythema or exudates, no LAD b/l. No nasal congestion. Hearing intact. Clear heart sounds, S1/S2, no JVD, b/l pedal edema, or heart murmur. Lower extremities equal without edema or tenderness. Clear lung sounds, no respiratory distress, wheezes, crackles, or accessory muscle use. No reproducible chest wall TTP. No abdominal or CVA tenderness to palpation, no rebound, no guarding. Abdomen soft, non-distended, and with normoactive bowel sounds. Skin without jaundice or rash. 09/10/19 03:03 ED Treatment Course - LABORATORY CBC & Chemistry Diagram: 09/09/19 23:15 09/09/19 23:15 - ADDITIONAL ORDERS Additional order review: Laboratory Results 09/10/19 09/09/19 09/09/19 00:54 23:15 23:15 PT with INR 12.90 INR 1.09 Sodium Potassium Chloride Carbon Dioxide Anion Gap BUN Creatinine Est GFR (CKD-EPI)AfAm Est GFR (CKD-EPI)NonAf Random Glucose Calcium Total Bilirubin AST ALT Alkaline Phosphatase Creatine Kinase Troponin I B-Natriuretic Peptide Total Protein Albumin TSH Serum , Qual Negative Urine Color Yellow Urine Appearance Cloudy Urine pH 5.5 Ur Specific [place] 1.008 L Urine Protein Negative Urine Glucose (UA) Negative Urine Ketones Negative Urine Blood Negative Urine Nitrite Negative Urine Bilirubin Negative Urine Urobilinogen 0.2 Ur Leukocyte Esterase Trace Urine WBC (Auto) 10 Urine RBC (Auto) 8 Urine Casts (Auto) 1 U Epithel Cells (Auto) 5.6 Urine Bacteria (Auto) 1229.3 09/09/19 23:15 PT with INR INR Sodium 141 Potassium 3.8 Chloride 107 Carbon Dioxide 27 Anion Gap 7 L BUN 8.9 Creatinine 0.7 Est GFR (CKD-EPI)AfAm 131.94 Est GFR (CKD-EPI)NonAf 113.84 Random Glucose 99 Calcium 8.5 Total Bilirubin 0.2 AST 13 L ALT 27 Alkaline Phosphatase 76 Creatine Kinase 105 Troponin I < 0.02 B-Natriuretic Peptide 9.1 Total Protein 7.6 Albumin 3.8 TSH 13.70 H Serum , Qual Urine Color Urine Appearance Urine pH Ur Specific [place] Urine Protein Urine Glucose (UA) Urine Ketones Urine Blood Urine Nitrite Urine Bilirubin Urine Urobilinogen Ur Leukocyte Esterase Urine WBC (Auto) Urine RBC (Auto) Urine Casts (Auto) U Epithel Cells (Auto) Urine Bacteria (Auto) 09/09/19 23:15 RBC 4.37 MCV 80.1 MCHC 33.0 RDW 15.8 H MPV 8.2 Neutrophils % 46.8 D Lymphocytes % 38.4 Monocytes % 10.0 Eosinophils % 4.5 Basophils % 0.3 - RADIOLOGY Radiology Studies Ordered: Category Date Time Status CHEST PA & LAT [RAD] Stat Radiology 09/09/19 23:11 Taken - Medications Given in the ED: ED Medications Discontinued Medications Generic Name Dose Route Start Last Admin Trade Name Freq PRN Reason Stop Dose Admin Cephalexin HCl 500 mg 09/10/19 01:16 09/10/19 01:25 Keflex - PO 09/10/19 01:17 500 mg ONCE ONE Administration Diphenhydramine HCl 25 mg 09/09/19 23:12 09/10/19 00:00 Benadryl Injection - IVPUSH 09/09/19 23:13 25 mg ONCE ONE Administration Sodium Chloride 1,000 mls @ 1,000 mls/hr 09/09/19 23:12 09/09/19 23:29 Normal Saline - IV 09/10/19 00:11 1,000 mls/hr ASDIR STA Administration Metoclopramide HCl 10 mg 09/09/19 23:12 09/10/19 00:00 Reglan Injection - IVPUSH 09/09/19 23:13 10 mg ONCE ONE Administration Medical Decision Making - Medical Decision Making Pt was seen at bedside, also will be seen by attending Dr. Kerr. Pt presenting with chest pressure, headache, recent weight gain. Headache was gradual in onset, pt appears comfortable, not concerning for SAH at this time. Will evaluate for ACS, migraine, electrolyte imbalances, thyroid dysfunction, infection. Due to timeline, pt can be evaluated with a single troponin for ACS. Provided 10 mg IV reglan, 25 mg IV benadryl, and 1 L IV NS for improvement of headache. Pt with no active chest pain at this time. Will continue to reassess pt and monitor for symptomatic improvement. ECG: NSR, intervals WNL (HR 83, NE 124, QRS 88, QTc 441). TWI in III, with no significant ST segment changes. No significant changes from prior ECG (04/15/2019 ). 09/10/19 03:04 CBC and CMP WNL Trop <.02 with no acute EKG changes TSH elevated UA positive for UTI -- providing keflex Pts pain and headache improved after interventions. Pt safe for d/c to home with PCP f/u. Discussed need for urgent f/u to discuss thyroid with PCP. Pts vitals stable. Strict return precautions provided with pt understanding. 09/10/19 03:08 Discharge - Discharge Information Problems reviewed: Yes Clinical Impression/Diagnosis: Atypical chest pain Headache Qualifiers: Headache type: unspecified Headache chronicity pattern: acute headache Intractability: not intractable Qualified Code(s): R51 - Headache Hypothyroid Qualifiers: Hypothyroidism type: unspecified Qualified Code(s): E03.9 - Hypothyroidism, unspecified UTI (urinary tract infection) Qualifiers: Urinary tract infection type: site unspecified Hematuria presence: with hematuria Qualified Code(s): N39.0 - Urinary tract infection, site not specified Condition: Improved Disposition: HOME - Admission No - Additional Discharge Information Prescriptions: Cephalexin Monohydrate [Keflex -] 500 mg PO BID #10 capsule - Follow up/Referral Referrals: Sarbjit De Dios MD [Primary Care Provider] - - Patient Discharge Instructions Patient Printed Discharge Instructions: DI for Urinary Tract Infection (UTI), DI for Hypothyroidism Additional Instructions: You were seen in the ER today for chest pain and headache. The results of your labs and imaging today showed a problem with your thyroid function. Please follow-up with your primary care doctor within 1-2 days to discuss your visit and make sure your symptoms have improved. Please return to the ER if you have any worsening pain, development of fevers or chills, loss of consciousness, inability to tolerate food or fluids, or any other concerns. - Post Discharge Activity
[2019-09-09] MEDS ORDERED: SODIUM CHLORIDE 1,000 ML IV STA (23:12)
[2019-09-09] MEDS ORDERED: METOCLOPRAMIDE HCL INJECTION 10 MG/2 ML VIAL IVPUSH ONE (23:12)
[2019-09-09 23:22] LABS: BASO % 0.3 % (0-2.0); EOS % 4.5 % (0-4.5); HEMOGLOBIN 11.5 GM/dL (10.7-15.3); LYMPH % 38.4 % (8-40); MCH 26.4 pg (25.7-33.7); MEAN CELL VOLUME 80.1 fl (80-96); MEAN PLT VOLUME 8.2 fl (7.5-11.1); NEUT % 46.8 % (42.8-82.8); PLATELET COUNT 288 K/MM3 (134-434); RBC 4.37 M/mm3 (3.60-5.2); RDW 15.8 % (11.6-15.6); WHITE BLOOD COUNT 7.9 K/mm3 (4.0-10.0)
[2019-09-09 23:44] LABS: INR 1.09 (0.83-1.09); PROTHROMBIN TIME (PATIENT) 12.9 SEC (9.7-13.0)
[2019-09-09] MEDS ORDERED: METOCLOPRAMIDE HCL INJECTION 10 MG/2 ML VIAL ONE (23:47)
[2019-09-09 23:51] LABS: ALBUMIN 3.8 g/dl (3.4-5.0); ALK PHOS 76 U/L (45-117); ANION GAP 7 MMOL/L (8-16); BILIRUBIN,TOTAL 0.2 mg/dL (0.2-1); BLOOD UREA NITROGEN 8.9 mg/dL (7-18); CALCIUM 8.5 mg/dL (8.5-10.1); CHLORIDE 107 mmol/L (98-107); CO2 27 mmol/L (21-32); CREATININE 0.7 mg/dL (0.55-1.3); GLUCOSE,RANDOM 99 mg/dL (74-106); POTASSIUM 3.8 mmol/L (3.5-5.1); SGOT/AST 13 U/L (15-37); SGPT/ALT 27 U/L (13-61); SODIUM 141 mmol/L (136-145); TOT PROT 7.6 g/dl (6.4-8.2)
[2019-09-10 00:02] LABS: PLATELET ESTIMATE NORMAL
[2019-09-10 00:35] LABS: N-TERMINAL BNP 9.1 pg/ml (5-125)
--- NOTE | 2019-09-10 00:45 | PDOC ---
Attending Attestation - Resident Resident Name: Estela Lima - ED Attending Attestation I have performed the following: I have examined & evaluated the patient, The case was reviewed & discussed with the resident, I agree w/resident's findings & plan - HPI HPI: 09/10/19 00:44 see resident hpi - Physicial Exam PE: 09/10/19 00:44 agree with resident exam - Medical Decision Making 09/10/19 00:44 34-year-old female complaining of intermittent headaches, intermittent chest pain weight gain and body aches Patient is currently breast-feeding a 5-month-old Labs reveal a markedly elevated TSH likely secondary to hypothyroidism Plan for DC with outpatient endocrinology and primary care follow-up
[2019-09-10 01:06] LABS: EPI CELLS 5.6 /HPF (0-5/HPF); HYALINE CASTS 1 /lpf (0-8); PH,URINE 5.5 (5.0-8.0); URINE APPEARANCE CLOUDY; URINE BACTERIA 1229.3 /hpf (NEGATIVE); URINE BILIRUBIN NEGATIVE (NEGATIVE); URINE COLOR YELLOW; URINE GLUCOSE (UA) NEGATIVE (NEGATIVE); URINE KETONE NEGATIVE (NEGATIVE); URINE LEUK ESTERASE TRACE (NEGATIVE); URINE NITRITE NEGATIVE (NEGATIVE); URINE PROTEIN NEGATIVE (NEGATIVE); URINE RBC 8 /hpf (0-4); URINE UROBILINOGEN 0.2 mg/dL (0.2-1.0); URINE WBC 10 /hpf (0-5)
[2019-09-10] MEDS ORDERED: CEPHALEXIN MONOHYDRATE 500 MG CAPSULE (UD) PO ONE (01:16)
[2019-09-10] MEDS ORDERED: CEPHALEXIN MONOHYDRATE 500 MG CAPSULE (UD) ONE (01:20)
--- NOTE | 2019-09-10 14:42 | EKG ---
Test Reason : Blood Pressure : / mmHG Vent. Rate : 086 BPM Atrial Rate : 086 BPM P-R Int : 138 ms QRS Dur : 080 ms QT Int : 370 ms P-R-T Axes : 012 -08 005 degrees QTc Int : 442 ms NORMAL SINUS RHYTHM VOLTAGE CRITERIA FOR LEFT VENTRICULAR HYPERTROPHY ABNORMAL ECG WHEN COMPARED WITH ECG OF 15-APR-2019 16:55, INVERTED T WAVES HAVE REPLACED NONSPECIFIC T WAVE ABNORMALITY IN INFERIOR LEADS T WAVE AMPLITUDE HAS DECREASED IN ANTERIOR LEADS Confirmed by HIRAM PALOMO MD ([id number]) on 09/10/2019 2:41:40 PM Referred By: Confirmed By:HIRAM PALOMO MD
== END 2019-09-10 01:25 | disposition home or self-care (01) ==
LOC: JER 21:36
PROC: 3E033GC Introduction of Other Therapeutic Substance into Peripheral Vein, Percutaneous Approach (ICD-10-PCS; principal; 2019-09-09)
DX: R07.89 Other chest pain (principal); R51 Headache; E03.9 Hypothyroidism, unspecified; N39.0 Urinary tract infection, site not specified; Z91.013 Allergy to seafood
CPT/HCPCS: 36415; 71046-TC-FY; 80053; 81003; 82550; 83880; 84443; 84484; 84703; 85025; 85610; 87086; 93005; 93010; 99283-25; J7030

== ENCOUNTER 2019-11-16 15:09 | Emergency (ER) | payer OTHER ==
--- NOTE | 2019-11-16 15:29 | PDOC ---
Rapid Medical Evaluation Time Seen by Provider: 11/16/19 15:24 Medical Evaluation: Allergies Allergy/AdvReac Type Severity Reaction Status Date / Time shellfish derived Allergy Rash Verified 07/06/19 16:16 sea food Allergy Rash Uncoded 07/06/19 16:16 11/16/19 15:28 I performed a brief in-person evaluation of this patient. 34 [id number] with history of thyroid disease presenting with fever, cough , throat pain since returning from Saturday. Pertinent physical exam findings. HR 125 Afebrile after Tylenol at home Pharyngeal erythema, no exudates I have ordered the following: Ibuprofen Rapid strep Rapid flu Patient to proceed to [facility] for further evaluation.
[2019-11-16 15:33] VITALS: BP 111/82; PULSE 120; TEMP 98.1; BMI 44.6
--- NOTE | 2019-11-16 16:18 | PDOC ---
History of Present Illness - General Chief Complaint: Cold Symptoms Stated Complaint: COLD SYMPTOMS Time Seen by Provider: 11/16/19 15:24 - History of Present Illness Initial Comments: 11/16/19 16:16 34-year-old female with flulike symptoms x5 days Past History - Past Medical History Allergies/Adverse Reactions: Allergies Allergy/AdvReac Type Severity Reaction Status Date / Time shellfish derived Allergy Rash Verified 07/06/19 16:16 sea food Allergy Rash Uncoded 07/06/19 16:16 Home Medications: Ambulatory Orders Ferrous Sulfate [Feosol] 1 tab PO DAILY 03/30/19 Cephalexin Monohydrate [Keflex -] 500 mg PO BID #10 capsule 09/10/19 Guaifenesin Dm [Mucinex Dm -] 1 tab PO BID #60 tab.er.12h 11/16/19 Anemia: Yes (DURING ) Asthma: No Cancer: No Cardiac Disorders: No CVA: No COPD: No CHF: No Dementia: No Diabetes: No GI Disorders: No Disorders: No HTN: No Hypercholesterolemia: No Liver Disease: No Seizures: No Thyroid Disease: Yes - Surgical History Abdominal Surgery: No Appendectomy: No Cardiac Surgery: No Cholecystectomy: No Lung Surgery: No Neurologic Surgery: No Orthopedic Surgery: No - Immunization History Td Vaccination: Yes Immunization Up to Date: Yes - Psycho Social/Smoking Cessation Hx Smoking Status: No Smoking History: Never smoked Have you smoked in the past 12 months: No Number of Cigarettes Smoked Daily: 0 Cigars Per Day: 0 Hx Alcohol Use: No Drug/Substance Use Hx: No Substance Use Type: None Hx Substance Use Treatment: No Review of Systems - Review of Systems Constitutional: Yes: Fever HEENTM: Yes: Nose Congestion, Throat Pain Respiratory: Yes: Cough *Physical Exam - Vital Signs Last Vital Signs Temp Pulse Resp BP Pulse Ox 98.1 F 120 H 16 111/82 97 11/16/19 15:27 11/16/19 15:27 11/16/19 15:27 11/16/19 15:27 11/16/19 15:27 - Physical Exam 11/16/19 16:16 GENERAL: The patient is awake, alert, and fully oriented, in no acute distress. HEAD: Normal with no signs of trauma. EYES: sclera anicteric, conjunctiva clear. ENT: Ears normal tympanic membranes normal oropharynx clear uvula midline NECK: Normal range of motion LUNGS: Breath sounds equal, clear to auscultation bilaterally. No wheezes, and no crackles. HEART: S1 and S2 without murmur, rub or gallop. ABDOMEN: Soft, nontender, normoactive bowel sounds. No guarding, no rebound. No masses. EXTREMITIES: Normal range of motion, no edema. No clubbing or cyanosis. No cords, erythema, or tenderness. NEUROLOGICAL: Cranial nerves II through XII grossly intact. PSYCH: Normal mood, normal affect. SKIN: Warm, Dry, normal turgor, no rashes or lesions noted. Medical Decision Making - Medical Decision Making 11/16/19 16:17 Negative strep out of the window for Tamiflu supportive care for viral upper respiratory infection Discharge - Discharge Information Problems reviewed: Yes Clinical Impression/Diagnosis: Cough, Sore throat, Viral URI with cough Condition: Stable Disposition: HOME - Admission No - Additional Discharge Information Prescriptions: Guaifenesin Dm [Mucinex Dm -] 1 tab PO BID #60 tab.er.12h - Follow up/Referral Referrals: Sarbjit De Dios MD [Primary Care Provider] - - Patient Discharge Instructions Additional Instructions: Supportive care. Maintain hydration with Pedialyte. Tylenol and Motrin as directed for fever and body aches. Return to the emergency room for worsening symptoms. And without fail follow-up with your primary care physician in 1 to 2 days for further evaluation and treatment options. Mucinex as directed for cough - Post Discharge Activity
== END 2019-11-16 16:27 | disposition home or self-care (01) ==
LOC: JERFT 15:09
DX: J06.9 Acute upper respiratory infection, unspecified (principal); B97.89 Other viral agents as the cause of diseases classified elsewhere
CPT/HCPCS: 87070; 87804; 87880; 99282-25

== ENCOUNTER 2020-12-11 15:54 | Emergency (ER) | payer OTHER ==
[2020-12-11 15:58] VITALS: BP 112/70; PULSE 94; TEMP 98.5; BMI 43.0
[2020-12-11] MEDS ORDERED: FAMOTIDINE 20 MG/50 ML IVPB 20 MG/50 ML MG IVPB ONE ×2 (16:29→16:55)
[2020-12-11] MEDS ORDERED: ONDANSETRON 4 MG/2 ML VIAL IVPUSH ONE (16:29)
[2020-12-11] MEDS ORDERED: SODIUM CHLORIDE 0.9% 500 ML INFUS.BAG IV ONE (16:29)
[2020-12-11] MEDS ORDERED: ACETAMINOPHEN 1000 MG/100 ML VIAL (NON FORMULARY) IVPB ONE (16:29)
[2020-12-11] MEDS ORDERED: ACETAMINOPHEN INJECTION 100 ML IVPB ONE (16:55)
[2020-12-11] MEDS ORDERED: ONDANSETRON 4 MG/2 ML VIAL ONE (16:55)
[2020-12-11 17:06] LABS: BASO % 1.5 % (0-2.0); HEMATOCRIT 31.3 % (32.4-45.2); MCH 23.7 pg (25.7-33.7); MCHC 31.9 g/dl (32.0-36.0); MEAN CELL VOLUME 74.2 fl (80-96); MEAN PLT VOLUME 8.3 fl (7.5-11.1); MONO % 16.4 % (3.8-10.2); NEUT % 49.1 % (42.8-82.8); PLATELET COUNT 323 K/MM3 (134-434); RBC 4.21 M/mm3 (3.60-5.2); WHITE BLOOD COUNT 5.7 K/mm3 (4.0-10.0)
[2020-12-11 17:32] LABS: POTASSIUM 3.9 mmol/L (3.5-5.1)
[2020-12-11 17:34] LABS: ALBUMIN 3.5 g/dl (3.4-5.0); BLOOD UREA NITROGEN 6.6 mg/dL (7-18); CALCIUM 8.3 mg/dL (8.5-10.1)
[2020-12-11 17:37] LABS: CREATININE 0.7 mg/dL (0.55-1.3)
[2020-12-11 17:39] LABS: BILIRUBIN,TOTAL 0.2 mg/dL (0.2-1); TOT PROT 7.3 g/dl (6.4-8.2)
[2020-12-11] MEDS ORDERED: MAG HYDROX/AL HYDROX/SIMETH 30 ML UNIT-DOSE CUP ONE (18:09)
[2020-12-11] MEDS ORDERED: LIDOCAINE VISCOUS 2% ORAL/TOP 20 ML UNIT-DOSE CUP ONE (18:09)
[2020-12-11] MEDS ORDERED: LIDOCAINE VISCOUS 2% ORAL/TOP 20 ML UNIT-DOSE CUP MM ONE (18:13)
[2020-12-11] MEDS ORDERED: MAG HYDROX/AL HYDROX/SIMETH 30 ML UNIT-DOSE CUP PO ONE (18:13)
== END 2020-12-11 18:49 | disposition home or self-care (01) ==
LOC: JER 15:54
PROC: 3E033NZ Introduction of Analgesics, Hypnotics, Sedatives into Peripheral Vein, Percutaneous Approach (ICD-10-PCS; principal; 2020-12-11)
PROC: 3E033GC Introduction of Other Therapeutic Substance into Peripheral Vein, Percutaneous Approach (ICD-10-PCS; 2020-12-11)
DX: R10.13 Epigastric pain (principal); R19.7 Diarrhea, unspecified
CPT/HCPCS: 36415; 80053; 83690; 84703; 85025; 99285-25; J0131

== ENCOUNTER 2021-10-21 15:37 | Emergency (ER) | payer OTHER ==
[2021-10-21 15:41] VITALS: BP 125/69; PULSE 105; TEMP 99; BMI 42.9
[2021-10-21] MEDS ORDERED: guaiFENesin/CODEINE 10 ML UNIT-DOSE CUPS PO ONE (16:29)
[2021-10-21] MEDS ORDERED: guaiFENesin/CODEINE 5 ML UNIT-DOSE CUPS PO ONE (16:43)
== END 2021-10-21 18:35 | disposition home or self-care (01) ==
LOC: JER 15:37
DX: R05.1 Acute cough (principal)
CPT/HCPCS: 71046-TC-FY; 99283-25

== ENCOUNTER 2022-04-18 19:21 | Emergency (ER) | payer OTHER ==
[2022-04-18 19:46] VITALS: BP 104/52; PULSE 87; TEMP 98.8; BMI 44.6
[2022-04-18] MEDS ORDERED: FAMOTIDINE 20 MG TABLET PO ONE (22:33)
[2022-04-18] MEDS ORDERED: ONDANSETRON *ODT* 4 MG TABLET SL ONE (22:33)
[2022-04-18] MEDS ORDERED: ONDANSETRON *ODT* 4 MG TABLET ONE (22:39)
[2022-04-18] MEDS ORDERED: FAMOTIDINE 20 MG TABLET ONE (22:39)
== END 2022-04-18 22:50 | disposition home or self-care (01) ==
LOC: JERFT 19:21 → JER 19:21 → JERFT 22:50
DX: K21.9 Gastro-esophageal reflux disease without esophagitis (principal); R11.0 Nausea
CPT/HCPCS: 87651; 99283-25; C9803-CS; Q0162; U0003; U0005

== ENCOUNTER 2023-08-15 16:48 | Emergency (ER) | payer OTHER ==
[2023-08-15 17:00] VITALS: RESP 18; BMI 48.4
[2023-08-15] MEDS ORDERED: SODIUM CHLORIDE FOR INHALATION 3 ML VIAL.NEB IH ONE (17:40)
[2023-08-15] MEDS ORDERED: METOCLOPRAMIDE HCL INJECTION 10 MG/2 ML VIAL IVPB ONE (17:41)
[2023-08-15] MEDS ORDERED: SODIUM CHLORIDE 0.9% 500 ML INFUS.BAG IV ONE ×2 (17:41→19:18)
[2023-08-15] MEDS ORDERED: ACETAMINOPHEN 1000 MG/100 ML BAG IVPB ONE (17:41)
[2023-08-15] MEDS ORDERED: METOCLOPRAMIDE HCL INJECTION 10 MG/2 ML VIAL ONE (18:04)
[2023-08-15] MEDS ORDERED: ACETAMINOPHEN INJECTION 100 ML IVPB ONE (18:05)
[2023-08-15 18:52] LABS: HEMATOCRIT 30.4 % (32.4-45.2); HEMOGLOBIN 9.9 GM/dL (10.7-15.3); MCH 24.1 pg (25.7-33.7); MCHC 32.4 g/dl (32.0-36.0); MEAN CELL VOLUME 74.3 fl (80-96); MEAN PLT VOLUME 8.1 fl (7.5-11.1); PLATELET COUNT 253 10^3/uL (134-434); RBC 4.09 M/mm3 (3.60-5.2); RDW 18.6 % (11.6-15.6); WHITE BLOOD COUNT 7.2 K/mm3 (4.0-10.0)
[2023-08-15 18:58] LABS: POTASSIUM 3.7 mmol/L (3.5-5.1)
[2023-08-15 19:00] LABS: CALCIUM 8.6 mg/dL (8.5-10.1); INR 1.07 (0.83-1.09); PROTHROMBIN TIME (PATIENT) 12.4 SEC (9.7-13.0)
[2023-08-15 19:01] LABS: ALBUMIN 2.8 g/dl (3.4-5.0)
[2023-08-15 19:02] LABS: ACTIVATED PTT 28.1 SECONDS (25.2-36.5)
[2023-08-15 19:04] LABS: CREATININE 0.5 mg/dL (0.55-1.3)
[2023-08-15 19:05] LABS: BILIRUBIN,TOTAL 0.3 mg/dL (0.2-1)
[2023-08-15 19:06] LABS: TOT PROT 6.4 g/dl (6.4-8.2)
[2023-08-15 19:53] LABS: ANISOCYTOSIS 1+; MACROCYTOSIS 1+; OVALOCYTE 1+
[2023-08-15 23:18] VITALS: BP 117/76; PULSE 124; TEMP 98.5
== END 2023-08-16 00:20 | disposition home or self-care (01) ==
LOC: JER 16:48
PROC: 3E033NZ Introduction of Analgesics, Hypnotics, Sedatives into Peripheral Vein, Percutaneous Approach (ICD-10-PCS; principal; 2023-08-15)
PROC: 3E033GC Introduction of Other Therapeutic Substance into Peripheral Vein, Percutaneous Approach (ICD-10-PCS; 2023-08-15)
DX: O98.512 Other viral diseases complicating pregnancy, second trimester (principal); U07.1 COVID-19; R09.81 Nasal congestion; R05.9 Cough, unspecified; R06.00 Dyspnea, unspecified; R51.9 Headache, unspecified; Z3A.26 26 weeks gestation of pregnancy
CPT/HCPCS: 0241U-QW; 36415; 71275-TC; 80053; 85025; 85610; 85730; 93005; 93010; 99285-25; Q9967

== ENCOUNTER 2023-11-13 06:10 | Inpatient (IN) | payer OTHER ==
[2023-11-13] MEDS: ELECTROLYTE-148 SOLN 500 ML IV ONE (06:25)
[2023-11-13] MEDS ORDERED: ELECTROLYTE-148 SOLN 1,000 ML IV SCH ×2 (06:55→08:30)
[2023-11-13 07:01] VITALS: BMI 52.7
[2023-11-13] MEDS: CITRIC ACID/SODIUM CITRATE 30 ML UNIT-DOSE CUP PO ONE (07:45)
[2023-11-13] MEDS ORDERED: OXYTOCIN 10 UNITS/ML VIAL ONE (07:57)
[2023-11-13] MEDS ORDERED: morphine SULFATE/PF 1 MG/2 ML (2cc Syringe - QUVA) ONE (07:57)
[2023-11-13] MEDS ORDERED: PHENYLEPHRINE HCL 10 MG/1 ML SINGLE DOSE VIAL ONE (07:57)
[2023-11-13] MEDS ORDERED: FENTANYL CITRATE/PF 50 MCG/ML VIAL ONE (07:57)
[2023-11-13] MEDS ORDERED: ONDANSETRON 4 MG/2 ML VIAL ONE (07:57)
[2023-11-13] MEDS ORDERED: ceFAZolin SODIUM 1 GM VIAL ONE (07:57)
[2023-11-13] MEDS ORDERED: KETOROLAC TROMETHAMINE 30 MG/1 ML VIAL ONE (07:57)
[2023-11-13] MEDS ORDERED: LIGASURE IMPACT TP ONE (08:14)
[2023-11-13] MEDS ORDERED: ONDANSETRON 4 MG/2 ML VIAL IVPUSH PRN (09:57)
[2023-11-13] MEDS ORDERED: OXYTOCIN 20 UNITS in 0.9% NS 20 UNIT/1,000 ML INFUS.BAG IV ONE (09:58)
[2023-11-13] MEDS: OXYTOCIN 20 UNITS in 0.9% NS 20 UNIT/1,000 ML INFUS.BAG IV SCH (10:00)
[2023-11-13] MEDS ORDERED: IBUPROFEN 800 MG/8 ML IJ IVPB ONE (11:07)
[2023-11-13] MEDS: IBUPROFEN 800 MG/8 ML IJ IVPB PRN (11:15)
[2023-11-13] MEDS: METHYLERGONOVINE MALEATE 0.2 MG/1 ML AMP IM PRN (11:17)
[2023-11-13] MEDS: PRENATAL VITAMINS W/ FOLIC ACID TABLET (FP) PO SCH (16:21)
[2023-11-13] MEDS: FERROUS SO4 325 MG TABLET (FP) PO SCH (16:21)
[2023-11-13 17:48] LABS: HEMATOCRIT 26.8 % (32.4-45.2); HEMOGLOBIN 8.7 GM/dL (10.7-15.3); MCH 23.7 pg (25.7-33.7); MCHC 32.4 g/dl (32.0-36.0); MEAN PLT VOLUME 7.9 fl (7.5-11.1); PLATELET COUNT 243 10^3/uL (134-434); RBC 3.67 M/mm3 (3.60-5.2); RDW 17.8 % (11.6-15.6); WHITE BLOOD COUNT 9.6 K/mm3 (4.0-10.0)
[2023-11-13] MEDS: CARBOPROST TROMETHAMINE 250 MCG/ML AMPUL IM ONE (21:22)
[2023-11-13] MEDS: SIMETHICONE 80 MG TAB.CHEW (FP) PO PRN (21:22)
[2023-11-13] MEDS: ACETAMINOPHEN 1000 MG/100 ML BAG IVPB PRN (23:24)
[2023-11-14 08:28] LABS: BASO % 0.2 % (0-2.0); EOS % 0.3 % (0-4.5); HEMATOCRIT 23.2 % (32.4-45.2); HEMOGLOBIN 7.3 GM/dL (10.7-15.3); LYMPH % 7.2 % (8-40); MCH 23.1 pg (25.7-33.7); MCHC 31.5 g/dl (32.0-36.0); MEAN CELL VOLUME 73.4 fl (80-96); MEAN PLT VOLUME 7.8 fl (7.5-11.1); MONO % 10.2 % (3.8-10.2); NEUT % 82.1 % (42.8-82.8); PLATELET COUNT 224 10^3/uL (134-434); RBC 3.16 M/mm3 (3.60-5.2); RDW 17.7 % (11.6-15.6); WHITE BLOOD COUNT 14.9 K/mm3 (4.0-10.0)
[2023-11-14] MEDS: ACETAMINOPHEN 325 MG TABLET (FP) PO PRN (12:24)
[2023-11-14] MEDS: oxyCODONE HCL 5 MG TABLET PO PRN (14:21)
[2023-11-14] MEDS: IBUPROFEN 600 MG TABLET (FP) PO PRN (16:49)
[2023-11-15] MEDS: BISACODYL 10 MG SUPP.RECT RC PRN (09:52)
[2023-11-16 08:07] LABS: HEMATOCRIT 21.6 % (32.4-45.2); MCHC 32.3 g/dl (32.0-36.0); MEAN CELL VOLUME 74.3 fl (80-96); MEAN PLT VOLUME 7.4 fl (7.5-11.1); PLATELET COUNT 291 10^3/uL (134-434); WHITE BLOOD COUNT 10.8 K/mm3 (4.0-10.0)
[2023-11-16 10:47] VITALS: BP 120/83; PULSE 99; RESP 16; TEMP 98.3
[2023-11-16 12:13] LABS: ANISOCYTOSIS 0; HELMET CELLS 0; HOWELL-JOLLY BODIES 0; MACROCYTOSIS 0; OVALOCYTE 0; ROULEAU 0; SICKELED CELLS 0; TARGET CELLS 0; TEAR DROP CELLS 0; TOXIC GRANULATION 0
== END 2023-11-16 11:51 | disposition home or self-care (01) | DRG 540 ==
LOC: JLDR 06:10 → J3W 12:25
PROVIDERS: ADMIT Obstetrics & Gynecology; ATTEND Obstetrics & Gynecology
PROC: 10D00Z1 Extraction of Products of Conception, Low, Open Approach (ICD-10-PCS; principal; 2023-11-13)
PROC: 0UT70ZZ Resection of Bilateral Fallopian Tubes, Open Approach (ICD-10-PCS; 2023-11-13)
DX: O34.211 Maternal care for low transverse scar from previous cesarean delivery (principal); O69.81X0 Labor and delivery complicated by cord around neck, without compression, not applicable or unspecified; O69.2XX0 Labor and delivery complicated by other cord entanglement, with compression, not applicable or unspecified; Z3A.39 39 weeks gestation of pregnancy; Z37.0 Single live birth; O99.02 Anemia complicating childbirth; D64.9 Anemia, unspecified; Z30.2 Encounter for sterilization
CPT/HCPCS: 36415; 80053; 85025; 85027; 85610; 86850; 86900; 86901; 86922; 87635; 87804; 88305-TC; 88307-TC; 94010; J0131

== ENCOUNTER 2023-11-19 23:44 | Emergency (ER) | payer OTHER ==
[2023-11-19 23:49] VITALS: RESP 19; TEMP 98.3; BMI 52.7
[2023-11-20 00:48] LABS: HEMATOCRIT 21.8 % (32.4-45.2); MCH 23.9 pg (25.7-33.7); MEAN CELL VOLUME 74.6 fl (80-96); MEAN PLT VOLUME 6.9 fl (7.5-11.1); PLATELET COUNT 384 10^3/uL (134-434); RBC 2.92 M/mm3 (3.60-5.2); RDW 18.4 % (11.6-15.6); WHITE BLOOD COUNT 11.2 K/mm3 (4.0-10.0)
[2023-11-20 01:06] LABS: EPI CELLS 29 /uL (0-25.1); HYALINE CASTS 0 /uL (0-3.1); PH,URINE 5.5 (5.0-8.0); URINE APPEARANCE CLOUDY; URINE BACTERIA 29 /uL (0-1359); URINE BILIRUBIN NEGATIVE (NEGATIVE); URINE COLOR ORANGE; URINE GLUCOSE (UA) NEGATIVE (NEGATIVE); URINE KETONE NEGATIVE (NEGATIVE); URINE LEUK ESTERASE 2+ (NEGATIVE); URINE NITRITE NEGATIVE (NEGATIVE); URINE PROTEIN 1+ (NEGATIVE); URINE RBC 3255 /uL (0-23.9); URINE UROBILINOGEN 0.2 mg/dL (0.2-1.0); URINE WBC 347 /uL (0-25.8)
[2023-11-20 01:16] LABS: CALCIUM 8.6 mg/dL (8.5-10.1)
[2023-11-20 01:17] LABS: ALBUMIN 2.4 g/dl (3.4-5.0); BLOOD UREA NITROGEN 9.9 mg/dL (7-18); MAGNESIUM 1.6 mg/dL (1.8-2.4)
[2023-11-20 01:20] LABS: CREATININE 0.6 mg/dL (0.55-1.3)
[2023-11-20 01:21] LABS: BILIRUBIN,TOTAL 0.2 mg/dL (0.2-1); TOT PROT 6.1 g/dl (6.4-8.2)
[2023-11-20 01:25] LABS: N-TERMINAL BNP 190.7 pg/ml (5-125)
[2023-11-20] MEDS ORDERED: ACETAMINOPHEN INJECTION 100 ML IVPB ONE (01:31)
[2023-11-20] MEDS ORDERED: METOCLOPRAMIDE HCL INJECTION 10 MG/2 ML VIAL ONE (01:31)
[2023-11-20] MEDS: METOCLOPRAMIDE HCL INJECTION 10 MG/2 ML VIAL IVPUSH ONE (01:34)
[2023-11-20] MEDS: ACETAMINOPHEN 1000 MG/100 ML BAG IVPB ONE (01:34)
[2023-11-20 03:27] VITALS: BP 113/66; PULSE 78
[2023-11-20] MEDS ORDERED: FUROSEMIDE 40 MG/4 ML INJECTABLE VIAL ONE (03:31)
[2023-11-20] MEDS: FUROSEMIDE 40 MG/4 ML INJECTABLE VIAL IVPUSH ONE (03:35)
[2023-11-20 05:23] LABS: ANISOCYTOSIS 3+; MACROCYTOSIS 0; OVALOCYTE 1+; TEAR DROP CELLS 1+
== END 2023-11-20 04:40 | disposition home or self-care (01) ==
LOC: JER 23:44
PROC: 3E033NZ Introduction of Analgesics, Hypnotics, Sedatives into Peripheral Vein, Percutaneous Approach (ICD-10-PCS; principal; 2023-11-20)
PROC: 3E033GC Introduction of Other Therapeutic Substance into Peripheral Vein, Percutaneous Approach (ICD-10-PCS; 2023-11-20)
DX: R60.0 Localized edema (principal); R51.9 Headache, unspecified; M79.10 Myalgia, unspecified site; M54.6 Pain in thoracic spine; R07.89 Other chest pain; R11.0 Nausea; J32.9 Chronic sinusitis, unspecified; Z20.822 Contact with and (suspected) exposure to COVID-19
CPT/HCPCS: 0241U-QW; 36415; 70450-TC; 80053; 81003; 83690; 83735; 83880; 85025; 87086; 93005; 93010; 93970-TC; 96374; 96375; 99285-25; J0131

== ENCOUNTER 2023-11-25 22:00 | Emergency (ER) | payer OTHER ==
[2023-11-25 22:08] VITALS: BMI 51.3
[2023-11-26 01:44] LABS: BASO % 0.8 % (0-2.0); EOS % 4.3 % (0-4.5); HEMATOCRIT 25.7 % (32.4-45.2); HEMOGLOBIN 8.1 GM/dL (10.7-15.3); LYMPH % 15.6 % (8-40); MCH 23.4 pg (25.7-33.7); MCHC 31.5 g/dl (32.0-36.0); MEAN CELL VOLUME 74.1 fl (80-96); MEAN PLT VOLUME 7.2 fl (7.5-11.1); MONO % 12.3 % (3.8-10.2); PLATELET COUNT 389 10^3/uL (134-434); RBC 3.47 M/mm3 (3.60-5.2); RDW 18.5 % (11.6-15.6); WHITE BLOOD COUNT 10.2 K/mm3 (4.0-10.0)
[2023-11-26 01:52] LABS: INR 1.2 (0.83-1.09); PROTHROMBIN TIME (PATIENT) 13.9 SEC (9.7-13.0)
[2023-11-26 01:54] LABS: ACTIVATED PTT 31.5 SECONDS (25.2-36.5)
[2023-11-26 02:02] LABS: POTASSIUM 3.5 mmol/L (3.5-5.1)
[2023-11-26 02:03] LABS: CALCIUM 8.6 mg/dL (8.5-10.1)
[2023-11-26 02:04] LABS: ALBUMIN 2.7 g/dl (3.4-5.0); BLOOD UREA NITROGEN 8.3 mg/dL (7-18)
[2023-11-26 02:07] LABS: CREATININE 0.6 mg/dL (0.55-1.3)
[2023-11-26 02:09] LABS: BILIRUBIN,TOTAL 0.4 mg/dL (0.2-1); TOT PROT 6.7 g/dl (6.4-8.2)
[2023-11-26 02:12] LABS: N-TERMINAL BNP 205.8 pg/ml (5-125)
[2023-11-26 04:13] VITALS: BP 140/88; PULSE 79; RESP 20; TEMP 97.9
== END 2023-11-26 04:13 | disposition home or self-care (01) ==
LOC: JER 22:00
DX: O72.1 Other immediate postpartum hemorrhage (principal); O90.89 Other complications of the puerperium, not elsewhere classified; R22.43 Localized swelling, mass and lump, lower limb, bilateral; R10.2 Pelvic and perineal pain; O14.95 Unspecified pre-eclampsia, complicating the puerperium; O98.53 Other viral diseases complicating the puerperium; J10.1 Influenza due to other identified influenza virus with other respiratory manifestations; Z20.822 Contact with and (suspected) exposure to COVID-19
CPT/HCPCS: 0241U-QW; 36415; 71045-TC-FY; 80053; 83735; 83880; 84484; 85025; 85610; 85730; 93005; 93010; 99285-25